=== PATIENT | male | born 1990 | race Caucasian/White ===

== ENCOUNTER 2017-07-03 16:17 | Inpatient (IN) | payer OTHER ==
[2017-07-03 16:40] VITALS: BMI 19.3
[2017-07-03] MEDS ORDERED: SODIUM CHLORIDE 1,000 ML IV STA ×2 (18:26→18:27)
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
[2017-07-03 18:49] LABS: HEMOGLOBIN 9.4 GM/dL (11.7-16.9); MCH 28.3 pg (25.7-33.7); MCHC 33.5 g/dl (32.0-35.9); MEAN CELL VOLUME 84.5 fl (80-96); MEAN PLT VOLUME 9.9 fl (7.5-11.1); PLATELET COUNT 129 K/MM3 (134-434); RBC 3.32 M/mm3 (4.00-5.60); RDW 14.5 % (11.9-15.9); URINE APPEARANCE CLEAR; URINE BILIRUBIN NEGATIVE (NEGATIVE); URINE BLOOD NEGATIVE (NEGATIVE); URINE COLOR LTYELLOW; URINE GLUCOSE (UA) NEGATIVE (NEGATIVE); URINE KETONE NEGATIVE (NEGATIVE); URINE LEUK ESTERASE NEGATIVE (NEGATIVE); URINE NITRITE NEGATIVE (NEGATIVE); URINE PROTEIN NEGATIVE (NEGATIVE); URINE UROBILINOGEN NEGATIVE mg/dL (0.2-1.0); WHITE BLOOD COUNT 4.9 K/mm3 (4.0-10.0)
[2017-07-03] MEDS ORDERED: DEXAMETHASONE SOD PHOSPHATE 10 MG/1 ML VIAL IVPUSH ONE (18:57)
[2017-07-03 19:06] LABS: INR 1.08 (0.82-1.09); PROTHROMBIN TIME (PATIENT) 12.2 SEC (9.98-11.88)
[2017-07-03 19:09] LABS: ACTIVATED PTT 41.9 SECONDS (26.9-34.4)
[2017-07-03 19:16] LABS: ALBUMIN 3.1 g/dl (3.4-5.0); ANION GAP 6 (8-16); BILIRUBIN,TOTAL 0.2 mg/dL (0.2-1.0); BLOOD UREA NITROGEN 17 mg/dL (7-18); CALCIUM 8.1 mg/dL (8.5-10.1); CHLORIDE 107 mmol/L (98-107); CO2 28 mmol/L (21-32); GLUCOSE,RANDOM 104 mg/dL (74-106); SGOT/AST 28 U/L (15-37); SGPT/ALT 21 U/L (12-78); SODIUM 141 mmol/L (136-145); TOT PROT 7.6 g/dl (6.4-8.2)
[2017-07-03 19:17] LABS: ALK PHOS 79 U/L (45-117)
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
[2017-07-03 19:45] LABS: PLATELET ESTIMATE SLT DECREASE
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
[2017-07-03 20:13] LABS: COCAINE, UR NEGATIVE ng/ml (CUTOFF=300); METHADONE, UR NEGATIVE ng/ml (CUTOFF=300); OPIATES, URI NEGATIVE ng/ml (CUTOFF=300); PHENCYCLIDINE,URINE NEGATIVE ng/ml (CUTOFF=25); URINE AMPHETAMINES NEGATIVE ng/ml (CUTOFF=500); URINE BARBITURATES NEGATIVE ng/ml (CUTOFF=200); URINE BENZODIAZEPINES NEGATIVE ng/ml (CUTOFF=200)
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
[2017-07-03] MEDS ORDERED: ACETAMINOPHEN 325 MG TABLET (FP) PO ONE (23:15)
[2017-07-03] MEDS ORDERED: ACETAMINOPHEN 325 MG TABLET (FP) ONE (23:45)
[2017-07-04 01:51] LABS: URINE APPEARANCE CLEAR; URINE BILIRUBIN NEGATIVE (NEGATIVE); URINE BLOOD NEGATIVE (NEGATIVE); URINE COLOR STRAW; URINE GLUCOSE (UA) NEGATIVE (NEGATIVE); URINE KETONE NEGATIVE (NEGATIVE); URINE LEUK ESTERASE NEGATIVE (NEGATIVE); URINE NITRITE NEGATIVE (NEGATIVE); URINE PROTEIN NEGATIVE (NEGATIVE); URINE UROBILINOGEN NEGATIVE mg/dL (0.2-1.0)
[2017-07-04] MEDS: HEPARIN NA (PORCINE) 5,000 UNITS/ML 1ML VIAL SQ SCH ×3 (06:11→23:03)
[2017-07-04 07:59] LABS: HEMATOCRIT 27.2 % (35.4-49); MCHC 33.2 g/dl (32.0-35.9); MEAN CELL VOLUME 84.3 fl (80-96); MEAN PLT VOLUME 10.2 fl (7.5-11.1); PLATELET COUNT 127 K/MM3 (134-434); RBC 3.22 M/mm3 (4.00-5.60); RDW 14.2 % (11.9-15.9); WHITE BLOOD COUNT 6.1 K/mm3 (4.0-10.0)
[2017-07-04 08:25] LABS: ALBUMIN 2.9 g/dl (3.4-5.0); ANION GAP 5 (8-16); BILIRUBIN,TOTAL 0.3 mg/dL (0.2-1.0); BLOOD UREA NITROGEN 11 mg/dL (7-18); CALCIUM 8.7 mg/dL (8.5-10.1); CHLORIDE 109 mmol/L (98-107); CO2 29 mmol/L (21-32); CREATININE 0.9 mg/dL (0.7-1.3); GLUCOSE,RANDOM 123 mg/dL (74-106); MAGNESIUM 1.9 mg/dL (1.8-2.4); PHOSPHOROUS 3.4 mg/dL (2.5-4.9); POTASSIUM 4.2 mmol/L (3.5-5.1); SGOT/AST 25 U/L (15-37); SGPT/ALT 24 U/L (12-78); SODIUM 143 mmol/L (136-145); TOT PROT 7.9 g/dl (6.4-8.2)
[2017-07-04 08:26] LABS: ALK PHOS 77 U/L (45-117)
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
[2017-07-04 11:01] LABS: ANISOCYTOSIS 0; MACROCYTOSIS 0; PLATELET ESTIMATE DECREASED
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
[2017-07-04] MEDS: ACETAMINOPHEN 325 MG TABLET (FP) PO PRN (19:50)
[2017-07-04] MEDS: NICOTINE 7 MG/24 HOURS TOPICAL PATCH TD SCH (20:43)
[2017-07-04] MEDS ORDERED: ALPRAZolam 0.25 MG TABLET PO ONE (20:45)
--- NOTE | 2017-07-04 23:18 | EKG ---
Test Reason : Blood Pressure : / mmHG Vent. Rate : 097 BPM Atrial Rate : 097 BPM P-R Int : 120 ms QRS Dur : 076 ms QT Int : 332 ms P-R-T Axes : 043 057 038 degrees QTc Int : 421 ms NORMAL SINUS RHYTHM NORMAL ECG NO PREVIOUS ECGS AVAILABLE Confirmed by CARLOS OLEA MD ([id number]) on 07/04/2017 11:18:08 PM Referred By: Confirmed By:CARLOS OLEA MD
[2017-07-05] MEDS: HEPARIN NA (PORCINE) 5,000 UNITS/ML 1ML VIAL SQ SCH ×2 (06:31→14:03)
[2017-07-05] MEDS: ACETAMINOPHEN 325 MG TABLET (FP) PO PRN (07:07)
[2017-07-05 07:43] LABS: INR 1.12 (0.82-1.09); PROTHROMBIN TIME (PATIENT) 12.6 SEC (9.98-11.88)
[2017-07-05 07:45] LABS: ACTIVATED PTT 40.3 SECONDS (26.9-34.4)
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
[2017-07-05] MEDS: NICOTINE 7 MG/24 HOURS TOPICAL PATCH TD SCH (10:53)
--- NOTE | 2017-07-05 12:24 | PN ---
Progress Note (short form) - Note Progress Note: c/o joint swellling no fevers awaiting records from [facility] Vital Signs Period Temp Pulse Resp BP Sys/Ulrich Pulse Ox Last 24 Hr 98.1 F-98.2 F 74-86 20-20 111-124/63-77 97 cor-rrr lungs clear abd soft,nt ext no edema CBC, BMP 07/04/17 06:00 07/04/17 06:00 Laboratory Tests 07/03/17 07/04/17 07/05/17 18:20 00:02 06:00 ESR 86 H Retic Count Monoscreen Negative HIV 1&2 Antibody Screen Negative HIV P24 Antigen Negative 07/05/17 06:00 ESR Retic Count 3.04 H Monoscreen HIV 1&2 Antibody Screen HIV P24 Antigen Microbiology 07/04/17 11:40 Blood - Peripheral Venous Blood Culture - Preliminary NO GROWTH OBTAINED AFTER 24 HOURS, INCUBATION TO CONTINUE FOR 4 DAYS. 07/04/17 11:15 Blood - Peripheral Venous Blood Culture - Preliminary NO GROWTH OBTAINED AFTER 24 HOURS, INCUBATION TO CONTINUE FOR 4 DAYS. a/p awaiting information from [facility] awaiting rheumatology evaluation he should be seen by opthomology- spoke with resident observe off antibiotics
--- NOTE | 2017-07-05 13:32 | CONSULT ---
Consult Consult Specialty:: Rheumatology. - History of Present Illness History of Present Illness: 26 year old male with no significant PMH admitted with arthritis, fever and lymphadenopathy HPI The patient reports he has has a 5 month history of frequen fever - on average twice per week, pain and swelling in hands and lymphadenopathy in neck. He noticed skin rash in arms when he has fever and occasionally has rash in pals. He has had oral ulcers and dry mouth and reports pink eyes in the past ( not at the present time) ad blurred vision in the right eye. He denies dry eyes , Raynaud's phenomenon, shortness of breath, chest pain or abdominal pain. The patient was living in [place] and 2 weeks ago he came to [place] and was admitted to the [facility] in [place]. Laboratory work-up from 06/27/17 revealed a CBC with a WBC of 6.0, Hgb 8.3, HCT 25.4 and platelets 113. Creatinine was 0.78 and liver function tests were normal. Urinalysis was normal. Uric acid was 4.2, TSH 0.76PT INR 11.6 and PTT 44.2. Parvovirus B19 IgG 74 and IgM negative and HTLV negative, HBsAb was reactive and HBsAg and HBc Ab were negative. Quantiferon was negative. EBV IgG positive, IgM negative, CMV IgG 6.0, IgM 68.3. NOEMY 1:5120, anti DNAds >1:640, anti-Sm >8, anti-[employer] UP OPERATOR >8 and anti-histone 8.4. Anti-CCP, myeloperoxidase, proteinase-3, anti-SSA and anti-SSB were negative. Complement was decreased (C3: 36.3 and C4: 3.2). At [facility] CBC with WBC of 6.1, Hgb 9, HCT 27.2 and platelets 127. ESR 86 , reticulocytes 3.04. PTT 40.3. RPR and rheumatoid factor negative. Urinalysis was negative. CT chest: Atelectasisin bases, lingula and LOGAN. No lymphadenopathy. CT abdomen: hepatosplenomegaly. Inguinal lymph nodes. - History Source History Provided By: Patient Limitations to Obtaining History: No Limitations - Alcohol/Substance Use Hx Alcohol Use: No - Smoking History Smoking history: Current every day smoker Have you smoked in the past 12 months: Yes Aproximately how many cigarettes per day: 8 Home Medications - Allergies Allergies/Adverse Reactions: Allergies Allergy/AdvReac Type Severity Reaction Status Date / Time diphenhydramine Allergy Verified 07/03/17 16:35 [From Benadryl] ibuprofen [From Motrin] Allergy Itching Verified 07/03/17 16:35 - Home Medications Home Medications: Ambulatory Orders No Home Medications 0 dose .ROUTE UTDICT 12/27/12 Review of Systems - Review of Systems Constitutional: reports: Malaise Eyes: reports: Other ([facility] in the past nad blurred vision in the right eye.) HENT: reports: Throat Pain Neck: reports: Swollen Glands Cardiovascular: reports: No Symptoms Respiratory: reports: No Symptoms Gastrointestinal: reports: No Symptoms Musculoskeletal: reports: Other (See HPI) Neurological: reports: No Symptoms Physical Exam Vital Signs: Vital Signs Temperature 98.2 F 07/05/17 05:57 Pulse Rate 74 07/05/17 05:57 Respiratory Rate 20 07/05/17 05:57 Blood Pressure 120/68 07/05/17 05:57 O2 Sat by Pulse Oximetry (%) 97 07/04/17 21:00 Constitutional: Yes: Mild Distress Eyes: Yes: WNL HENT: Yes: WNL Neck: Yes: Other (Bilateral tender lymphadenopathy) Cardiovascular: Yes: WNL Respiratory: Yes: WNL Gastrointestinal: Yes: WNL Musculoskeletal: Yes: Other (6 tender joints (shoulders, elbows, hips) and 20 swollen joints (wrists, MCPs and PIPs in both hands).) Labs: CBC, BMP 07/04/17 06:00 07/04/17 06:00 Laboratory Tests 07/03/17 07/04/17 07/04/17 18:20 00:02 00:02 ESR Retic Count PTT (Actin FS) Total Bilirubin AST ALT Alkaline Phosphatase LD Total 266 H Total Protein Urine Color Urine Appearance Urine pH Ur Specific [place] Urine Protein Urine Glucose (UA) Urine Ketones Urine Blood Urine Nitrite Urine Bilirubin Urine Urobilinogen Ur Leukocyte Esterase Rheumatoid Factor RPR Titer Monoscreen Negative HIV 1&2 Antibody Screen Negative 07/04/17 07/04/17 07/04/17 01:41 06:00 11:15 ESR Retic Count PTT (Actin FS) Total Bilirubin 0.3 D AST 25 ALT 24 Alkaline Phosphatase 77 LD Total Total Protein 7.9 Urine Color Straw Urine Appearance Clear Urine pH 8.0 D Ur Specific [place] 1.009 Urine Protein Negative Urine Glucose (UA) Negative Urine Ketones Negative Urine Blood Negative Urine Nitrite Negative Urine Bilirubin Negative Urine Urobilinogen Negative Ur Leukocyte Esterase Negative Rheumatoid Factor < 10.0 RPR Titer Monoscreen HIV 1&2 Antibody Screen 07/05/17 07/05/17 07/05/17 06:00 06:00 06:00 ESR 86 H Retic Count PTT (Actin FS) 40.3 H Total Bilirubin AST ALT Alkaline Phosphatase LD Total Total Protein Urine Color Urine Appearance Urine pH Ur Specific [place] Urine Protein Urine Glucose (UA) Urine Ketones Urine Blood Urine Nitrite Urine Bilirubin Urine Urobilinogen Ur Leukocyte Esterase Rheumatoid Factor RPR Titer Nonreactive Monoscreen HIV 1&2 Antibody Screen 07/05/17 06:00 ESR Retic Count 3.04 H PTT (Actin FS) Total Bilirubin AST ALT Alkaline Phosphatase LD Total Total Protein Urine Color Urine Appearance Urine pH Ur Specific [place] Urine Protein Urine Glucose (UA) Urine Ketones Urine Blood Urine Nitrite Urine Bilirubin Urine Urobilinogen Ur Leukocyte Esterase Rheumatoid Factor RPR Titer Monoscreen HIV 1&2 Antibody Screen Problem List - Problems (1) Lupus (systemic lupus erythematosus) Assessment/Plan: Systemic lupus erythematosus. The patient has fever, lymphadenopathy and inflammatory arthritis. No kidney involvement. Serology positive (NOEMY, anti- DNAds, anti-Sm, anti-GE[employer] UP OPERATOR and anti-histone antibodies) and low complement. Plan: Start Prednisone 20 mg/d, Methotrexate 15 mg/week and Folic acid 1 mg BID. Once fever resolves he should continue management as outpatient Code(s): M32.9 - SYSTEMIC LUPUS ERYTHEMATOSUS, UNSPECIFIED
[2017-07-05] MEDS ORDERED: FOLIC ACID 1 MG TABLET (FP) PO SCH (14:15)
[2017-07-05] MEDS ORDERED: predniSONE 20 MG TABLET (UD) PO SCH (14:15)
[2017-07-05 15:10] VITALS: BP 140/85; PULSE 101; TEMP 97.9
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
[2017-07-05] MEDS ORDERED: METHOTREXATE 2.5 MG TABLET PO SCH (15:45)
[2017-07-05] MEDS ORDERED: NAPROXEN 500 MG TABLET (FP) PO SCH (22:00)
[2017-07-06 06:09] LABS: SERUM IRON SATURATION 23 (15-55); TOTAL IRON BINDING CAPACITY 271 (250-450); UIBC 209 ug/dL (111-343)
[2017-07-07 00:11] LABS: SPECKLED PATTERN >1:1280 (.)
== END 2017-07-05 18:40 | disposition home or self-care (01) | DRG 346 ==
LOC: JER 16:17 → JERBED 19:55 → UNDOADMIN 20:32 → J7W 07-04 10:10
PROVIDERS: ADMIT Internal Medicine; ATTEND Internal Medicine
DX: M32.9 Systemic lupus erythematosus, unspecified (principal); R59.0 Localized enlarged lymph nodes; J45.909 Unspecified asthma, uncomplicated; R63.4 Abnormal weight loss; Z68.22 Body mass index [BMI] 22.0-22.9, adult; R62.7 Adult failure to thrive; E46 Unspecified protein-calorie malnutrition; F17.200 Nicotine dependence, unspecified, uncomplicated; M08.00 Unspecified juvenile rheumatoid arthritis of unspecified site; D64.9 Anemia, unspecified; R50.9 Fever, unspecified; D69.6 Thrombocytopenia, unspecified; J98.11 Atelectasis; Z87.828 Personal history of other (healed) physical injury and trauma
CPT/HCPCS: 36415; 71046-TC-FY; 71101-TC-FY; 71250-TC; 74177-TC; 80053; 80307; 81003; 82728; 82784; 83540; 83550; 83605; 83615; 83735; 84100; 84134; 84155; 84165; 84443; 85025; 85044; 85610; 85651; 85730; 86038; 86308; 86334; 86431; 86480; 86593; 86850; 86900; 86901; 87040; 87389; 87491; 87591; 93005; 93010; 99285-25; J1100; J1644; J8610

== ENCOUNTER 2017-07-31 18:46 | Inpatient (IN) | payer OTHER ==
[2017-07-31 18:53] VITALS: TEMP 98.2; BMI 22.8
[2017-07-31] MEDS ORDERED: SODIUM CHLORIDE 0.9% 1000 ML INFUS.BAG IV STA (19:47)
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
[2017-07-31] MEDS ORDERED: CEFTRIAXONE 1 GM in DEXTROSE 5%-WATER - 50 ML IVPB ONE (20:09)
[2017-07-31] MEDS ORDERED: VANCOMYCIN 1 GRAM (PRE-DOCKED) 1,000 MG/250 ML BAG IVPB ONE (20:10)
[2017-07-31 20:24] LABS: BASO % 0.5 % (0-2.0); EOS % 0.3 % (0-4.5); HEMATOCRIT 34.7 % (35.4-49); HEMOGLOBIN 11.7 GM/dL (11.7-16.9); LYMPH % 10.4 % (8-40); MCH 29.9 pg (25.7-33.7); MCHC 33.8 g/dl (32.0-35.9); MEAN CELL VOLUME 88.4 fl (80-96); MEAN PLT VOLUME 9.4 fl (7.5-11.1); MONO % 5.4 % (3.8-10.2); NEUT % 83.4 % (42.8-82.8); PLATELET COUNT 188 K/MM3 (134-434); RBC 3.92 M/mm3 (4.00-5.60); RDW 18.9 % (11.9-15.9)
[2017-07-31 20:43] LABS: INR 1.18 (0.82-1.09); PROTHROMBIN TIME (PATIENT) 13.3 SEC (9.98-11.88)
[2017-07-31 20:46] LABS: ACTIVATED PTT 38.9 SECONDS (26.9-34.4)
[2017-07-31 20:57] LABS: ALBUMIN 3.9 g/dl (3.4-5.0); ANION GAP 10 (8-16); BILIRUBIN,TOTAL 0.3 mg/dL (0.2-1.0); BLOOD UREA NITROGEN 31 mg/dL (7-18); CALCIUM 9.3 mg/dL (8.5-10.1); CHLORIDE 103 mmol/L (98-107); CO2 30 mmol/L (21-32); CREATININE 1.1 mg/dL (0.7-1.3); GLUCOSE,RANDOM 104 mg/dL (74-106); POTASSIUM 4.6 mmol/L (3.5-5.1); SGOT/AST 15 U/L (15-37); SGPT/ALT 12 U/L (12-78); SODIUM 143 mmol/L (136-145); TOT PROT 8.1 g/dl (6.4-8.2)
[2017-07-31 21:00] LABS: ALK PHOS 71 U/L (45-117)
[2017-07-31] MEDS ORDERED: morphine CARPU-JECT 2 MG/1 ML DISP.SYRIN IVPUSH ONE (21:00)
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
[2017-08-01] MEDS ORDERED: SODIUM CHLORIDE 1,000 ML IV SCH (00:15)
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
[2017-08-01] MEDS ORDERED: PIPERACILLIN/TAZOB 3.375 GM/50 ML PRE-DOCKED IVPB SCH (00:30)
[2017-08-01] MEDS ORDERED: PIPERACILLIN/TAZOB 3.375 GM/50 ML PRE-DOCKED IVPB ONE ×2 (00:30→06:00)
[2017-08-01] MEDS ORDERED: ACETAMINOPHEN 1000 MG/100 ML VIAL (NON FORMULARY) IVPB ONE (03:07)
[2017-08-01 03:47] VITALS: BP 133/78; PULSE 91
[2017-08-01 06:09] LABS: BASO % 0.2 % (0-2.0); EOS % 1.5 % (0-4.5); HEMATOCRIT 33.2 % (35.4-49); HEMOGLOBIN 11.1 GM/dL (11.7-16.9); LYMPH % 17.9 % (8-40); MCHC 33.5 g/dl (32.0-35.9); MEAN CELL VOLUME 89.5 fl (80-96); MEAN PLT VOLUME 9.4 fl (7.5-11.1); MONO % 4.6 % (3.8-10.2); NEUT % 75.8 % (42.8-82.8); PLATELET COUNT 166 K/MM3 (134-434); RBC 3.71 M/mm3 (4.00-5.60); RDW 19.3 % (11.9-15.9); WHITE BLOOD COUNT 8.1 K/mm3 (4.0-10.0)
[2017-08-01 06:30] LABS: ANION GAP 8 (8-16); BLOOD UREA NITROGEN 26 mg/dL (7-18); CALCIUM 8.4 mg/dL (8.5-10.1); CHLORIDE 107 mmol/L (98-107); CO2 28 mmol/L (21-32); GLUCOSE,RANDOM 84 mg/dL (74-106); MAGNESIUM 1.9 mg/dL (1.8-2.4); PHOSPHOROUS 2.1 mg/dL (2.5-4.9); POTASSIUM 4.1 mmol/L (3.5-5.1); SODIUM 143 mmol/L (136-145)
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
[2017-08-01] MEDS ORDERED: predniSONE 20 MG TABLET (UD) PO SCH (10:00)
[2017-08-01] MEDS ORDERED: FOLIC ACID 1 MG TABLET (FP) PO SCH (10:00)
[2017-08-01] MEDS ORDERED: VANCOMYCIN 1 GRAM (PRE-DOCKED) 1,000 MG/250 ML BAG IVPB SCH (10:00)
[2017-08-02] MEDS ORDERED: METHOTREXATE 2.5 MG TABLET PO SCH (10:00)
== END 2017-08-01 06:45 | disposition left against medical advice (07) | DRG 383 ==
LOC: JERFT 18:46 → JERBED 08-01 00:32
PROVIDERS: ADMIT Internal Medicine; ATTEND Internal Medicine
DX: L03.116 Cellulitis of left lower limb (principal); M32.9 Systemic lupus erythematosus, unspecified; F17.210 Nicotine dependence, cigarettes, uncomplicated; R00.0 Tachycardia, unspecified; J45.909 Unspecified asthma, uncomplicated; F41.9 Anxiety disorder, unspecified
CPT/HCPCS: 36415; 71045-TC-FY; 73523-TC-FY; 73552-TC-LT-FY; 73562-TC-LT-FY; 73590-TC-LT-FY; 80048; 80053; 82550; 82553; 83605; 83735; 84100; 84484; 85025; 85610; 85651; 85730; 86140; 86850; 86900; 86901; 87040; 99282-25; J0131; J7030

== ENCOUNTER 2017-08-01 07:20 | Inpatient (IN) | payer OTHER ==
[2017-08-01 08:03] VITALS: BMI 22.8
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
[2017-08-01] MEDS ORDERED: SODIUM CHLORIDE 0.9% 1000 ML INFUS.BAG IV ONE (08:25)
[2017-08-01] MEDS ORDERED: ACETAMINOPHEN 1000 MG/100 ML VIAL (NON FORMULARY) IVPB ONE (08:26)
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
[2017-08-01] MEDS ORDERED: METHOTREXATE 2.5 MG TABLET PO SCH (09:45)
[2017-08-01] MEDS ORDERED: ACETAMINOPHEN 325 MG TABLET (FP) PO PRN (09:52)
[2017-08-01] MEDS ORDERED: predniSONE 20 MG TABLET (UD) ONE (10:13)
[2017-08-01] MEDS ORDERED: FOLIC ACID 1 MG TABLET (FP) ONE (10:13)
[2017-08-01] MEDS: FOLIC ACID 1 MG TABLET (FP) PO SCH (10:15)
[2017-08-01] MEDS: predniSONE 20 MG TABLET (UD) PO SCH (10:15)
[2017-08-01] MEDS ORDERED: CEFEPIME HCL/D5W 2 GM/50 ML BAG IVPB ONE (11:00)
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
[2017-08-01] MEDS ORDERED: VANCOMYCIN 1,000 MG in DEXTROSE 5%-WATER - 250 ML IVPB ONE (12:00)
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
[2017-08-01] MEDS ORDERED: PT OWN MED DRAWER 7, Y5N ONE (14:47)
[2017-08-01] MEDS: PANTOPRAZOLE 40 MG TABLET (FP) PO SCH (14:58)
[2017-08-01] MEDS: ACETAMINOPHEN 325 MG TABLET (FP) PO PRN (14:58)
[2017-08-01] MEDS: VANCOMYCIN 1,000 MG in DEXTROSE 5%-WATER - 250 ML IVPB SCH (14:59)
[2017-08-01] MEDS: KETOROLAC TROMETHAMINE 15 MG/ML VIAL IVPUSH PRN ×2 (14:59→23:09)
[2017-08-01] MEDS: PIPERACILLIN/TAZOB 3.375 GM 3.375 GM in DEXTROSE 5%-WATER - 50 ML IVPB SCH ×2 (17:05→17:51)
--- NOTE | 2017-08-01 18:43 | CON.ORTH ---
Consult Consult Specialty:: orthopedics - History of Present Illness History of Present Illness: 26y M here for R knee pain/swelling -admitted for dx of cellulitis -treated with abx to this point -pt states not feeling any better since starting abx -no f/c/n/v/ns - History Source History Provided By: Patient, Medical Record Limitations to Obtaining History: No Limitations - Past Medical History Rheumatology: Yes: Lupus - Alcohol/Substance Use Hx Alcohol Use: No - Smoking History Smoking history: Current every day smoker Have you smoked in the past 12 months: Yes Aproximately how many cigarettes per day: 8 Home Medications - Allergies Allergies/Adverse Reactions: Allergies Allergy/AdvReac Type Severity Reaction Status Date / Time diphenhydramine Allergy Verified 08/01/17 07:25 [From Benadryl] ibuprofen [From Motrin] Allergy Itching Verified 08/01/17 07:25 - Home Medications Home Medications: Ambulatory Orders Folic Acid - 1 mg PO DAILY 07/31/17 Methotrexate [Mexate -] 15 mg PO TU 07/31/17 Naproxen 500 mg PO BID 07/31/17 Prednisone [Deltasone] 20 mg PO DAILY 07/31/17 Physical Exam for Ortho Vital Signs: Vital Signs Temperature 99.4 F 08/01/17 14:26 Pulse Rate 99 H 08/01/17 14:26 Respiratory Rate 18 08/01/17 14:26 Blood Pressure 128/60 08/01/17 14:26 O2 Sat by Pulse Oximetry (%) 98 08/01/17 12:17 Constitutional: Yes: Well Nourished, No Distress, Calm Extremities: Yes: Other (RLE shows cellulitis anteriorly over the knee - pt is comfortably ambulating without assist - there is a small quarter sized area of fluctuance under a small scab - there is warmth about the anterior aspect of the knee - no effusion - NVID) Labs: ESR 53 CRP 4 Imaging - Results X-ray: Report Reviewed (Soft tissue swelling. No bony or joint pathology.), Image Reviewed Problem List - Problems (1) Septic prepatellar bursitis of left knee Assessment/Plan: I reviewed today's findings with Sae -advised that there does appear to be some fluctuance to the left knee -recommended aspiration to assess if there was fluid collection -after review of the risks, benefits and alternatives, the patient elected to proceed procedure: informed consent obtained risk of aspiration - persistent infection or spread benefit - obtain bacteria to analyze and target antibiotics alternative - observation on abx may not improve patient voiced understanding, offered translation services if he did not understand but patient declined patient elected to proceed The left knee was triple prepped with betadine. Under sterile technique a 18g needle was inserted into the pocket just adjacent to the scab. 2cc of purulent fluid obtained, as the wound was milked for more fluid, the scab was dislodged and more pus erupted from the wound. Pt given 4mg IV morphine for pain control. The knee was then milked for more pus. Approximately 20cc of pus removed. No more induration or fluctuant pockets noted. A compressive dressing was placed. -continue IV abx -cultures sent along with gram stain -will follow -anticipate improvement now that pus is decompressed -consider formal I+D if not improving on ABX Code(s): M71.162 - OTHER INFECTIVE BURSITIS, LEFT KNEE
[2017-08-01] MEDS ORDERED: morphine SULFATE 4 MG/ML VIAL ONE (18:54)
[2017-08-01] MEDS ORDERED: morphine SULFATE 4 MG/ML VIAL IVPUSH ONE (19:07)
[2017-08-02] MEDS: VANCOMYCIN 1,000 MG in DEXTROSE 5%-WATER - 250 ML IVPB SCH ×2 (01:07→11:03)
[2017-08-02] MEDS: PIPERACILLIN/TAZOB 3.375 GM 3.375 GM in DEXTROSE 5%-WATER - 50 ML IVPB SCH ×3 (02:45→18:05)
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
[2017-08-02 08:14] LABS: BASO % 0.2 % (0-2.0); EOS % 1.1 % (0-4.5); HEMATOCRIT 30.6 % (35.4-49); HEMOGLOBIN 10.2 GM/dL (11.7-16.9); LYMPH % 18.6 % (8-40); MCH 29.8 pg (25.7-33.7); MCHC 33.5 g/dl (32.0-35.9); MEAN PLT VOLUME 9.1 fl (7.5-11.1); MONO % 3.9 % (3.8-10.2); NEUT % 76.2 % (42.8-82.8); PLATELET COUNT 162 K/MM3 (134-434); RBC 3.44 M/mm3 (4.00-5.60); RDW 18.8 % (11.9-15.9); WHITE BLOOD COUNT 9.1 K/mm3 (4.0-10.0)
[2017-08-02 08:27] LABS: ANION GAP 5 (8-16); BLOOD UREA NITROGEN 20 mg/dL (7-18); CALCIUM 7.9 mg/dL (8.5-10.1); CHLORIDE 105 mmol/L (98-107); CO2 28 mmol/L (21-32); CREATININE 1.2 mg/dL (0.7-1.3); GLUCOSE,RANDOM 90 mg/dL (74-106); POTASSIUM 3.5 mmol/L (3.5-5.1); SODIUM 138 mmol/L (136-145)
[2017-08-02] MEDS: ENOXAPARIN NA (PORCINE) 40 MG/0.4 ML DISP.SYRIN SQ SCH (10:58)
[2017-08-02] MEDS: PANTOPRAZOLE 40 MG TABLET (FP) PO SCH (10:58)
[2017-08-02] MEDS: predniSONE 20 MG TABLET (UD) PO SCH (10:58)
[2017-08-02] MEDS: FOLIC ACID 1 MG TABLET (FP) PO SCH (10:58)
[2017-08-02] MEDS: ACETAMINOPHEN 325 MG TABLET (FP) PO PRN (10:59)
[2017-08-02] MEDS: KETOROLAC TROMETHAMINE 15 MG/ML VIAL IVPUSH PRN ×2 (10:59→23:59)
--- NOTE | 2017-08-02 15:19 | PN ---
Progress Note, Physician History of Present Illness: S/P aspiration of infected L prepatellar bursa Less pain Low grade temps Tmax 100.2 - Current Medication List Current Medications: Active Medications Acetaminophen (Tylenol -) 650 mg PO Q4H PRN PRN Reason: PAIN Last Admin: 08/02/17 10:59 Dose: 650 mg Enoxaparin Sodium (Lovenox -) 40 mg SQ DAILY [facility] Last Admin: 08/02/17 10:58 Dose: 40 mg Folic Acid (Folic Acid -) 1 mg PO DAILY [facility] Last Admin: 08/02/17 10:58 Dose: 1 mg Vancomycin HCl 1,000 mg/ (Dextrose) 250 mls @ 166.667 mls/hr IVPB Q12H JOSE Last Admin: 08/02/17 11:03 Dose: 166.667 mls/hr Piperacillin Sod/Tazobactam (Sod 3.375 gm/ Dextrose) 50 mls @ 100 mls/hr IVPB Q8H-IV JOSE PRN Reason: Protocol Last Admin: 08/02/17 11:02 Dose: 100 mls/hr Ketorolac Tromethamine (Toradol Injection -) 15 mg IVPUSH Q6H PRN PRN Reason: PAIN LEVEL 6-10 Stop: 08/06/17 13:42 Last Admin: 08/02/17 10:59 Dose: 15 mg Pantoprazole Sodium (Protonix -) 40 mg PO DAILY [facility] Last Admin: 08/02/17 10:58 Dose: 40 mg Prednisone (Deltasone -) 20 mg PO DAILY [facility] Last Admin: 08/02/17 10:58 Dose: 20 mg - Objective Vital Signs: Vital Signs Temperature 98.5 F 08/02/17 15:07 Pulse Rate 98 H 08/02/17 15:07 Respiratory Rate 18 08/02/17 15:07 Blood Pressure 122/65 08/02/17 15:07 O2 Sat by Pulse Oximetry (%) 98 08/01/17 21:00 Constitutional: Yes: No Distress Eyes: Yes: Conjunctiva Clear Cardiovascular: Yes: Regular Rate and Rhythm, S1, S2 Respiratory: Yes: CTA Bilaterally Gastrointestinal: Yes: Normal Bowel Sounds, Soft. No: Tenderness Extremities: Yes: Other (decreased erythema/ swelling L patella + expressible pus from incision) Labs: CBC, BMP 08/02/17 07:12 08/02/17 07:12 Assessment/Plan Infected L prepatellar bursa s/p aspiration Low grade temp SLE + L femur intramedullary joe Await c/s Vancomycin/ zosyn
--- NOTE | 2017-08-02 15:37 | PN ---
Teaching Attending Note Name of Resident: Adeel Frazier ATTENDING PHYSICIAN STATEMENT I saw and evaluated the patient. I reviewed the resident's note and discussed the case with the resident. I agree with the resident's findings and plan as documented. SUBJECTIVE:c/o L knee pain which improved after drainage yesterday. difficulty ambulating. denies CP, SOB, fever, chills, N/V/C/D OBJECTIVE: Last Vital Signs Temp Pulse Resp BP Pulse Ox 98.5 F 98 H 18 122/65 98 08/02/17 15:07 08/02/17 15:07 08/02/17 15:07 08/02/17 15:07 08/01/17 21:00 General NAD CV S1 S2 RRR no murmur/rub/gallop Lungs CTA B/L no wheezing/rales/rhonchi Extremities L knee swollen, erthematous, tender. +purulent drainage on palpation of the knee ASSESSMENT AND PLAN: 26yo M with PMH recently diagnosed SLE presenting to the ER wtih L knee pain 1. L knee prepatellar bursitis- s/p drainage bedside 08/01. continues to have active pus drainage. watched more drainage milked by ortho. should be done twice a day. f/u Cx sent. on vanco/zosyn day 2. check ESR/CRP. ortho and ID on board. pain control. PT eval. may need cane to walk a this time 2. SLE- will hold MTX during this time. cont prednisone 20mg. rheum consulted 3. Anemia of chronic disease- iron stuides on recent lab work noted. hgb above baseline. will monitor for now. no indication for txn 4. DVT ppx lovenox
[2017-08-02] MEDS ORDERED: METHOTREXATE 2.5 MG TABLET PO SCH (15:45)
[2017-08-02] MEDS ORDERED: morphine SULFATE 4 MG/ML VIAL IVPUSH ONE (16:30)
[2017-08-02] MEDS ORDERED: PT OWN MED DRAWER 7, Y5N ONE (17:41)
--- NOTE | 2017-08-02 21:27 | PN ---
Progress Note (short form) - Note Progress Note: Pt seen. Notes some improvement in comfort. AF VSS LLE Knee w continued cellulitis but slightly improved Wound shows continued purulent drainaged About 5cc additional pus expressed Comfortable ROM NVID A/p L prepatellar septic bursitis -continue iv abx -continue to express any debris from wound -can consider operative debridement if not responding to abx in the next few days Problem List - Problems (1) Septic prepatellar bursitis of left knee Code(s): M71.162 - OTHER INFECTIVE BURSITIS, LEFT KNEE
[2017-08-03] MEDS: VANCOMYCIN 1,000 MG in DEXTROSE 5%-WATER - 250 ML IVPB SCH (00:46)
[2017-08-03] MEDS: PIPERACILLIN/TAZOB 3.375 GM 3.375 GM in DEXTROSE 5%-WATER - 50 ML IVPB SCH (01:45)
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
[2017-08-03 08:07] LABS: BASO % 0.3 % (0-2.0); EOS % 1.4 % (0-4.5); HEMATOCRIT 30.9 % (35.4-49); HEMOGLOBIN 10.4 GM/dL (11.7-16.9); LYMPH % 17.4 % (8-40); MCH 29.8 pg (25.7-33.7); MCHC 33.5 g/dl (32.0-35.9); MEAN CELL VOLUME 89.1 fl (80-96); NEUT % 75.9 % (42.8-82.8); PLATELET COUNT 200 K/MM3 (134-434); RBC 3.47 M/mm3 (4.00-5.60); RDW 18.6 % (11.9-15.9); WHITE BLOOD COUNT 6.8 K/mm3 (4.0-10.0)
[2017-08-03 08:17] LABS: CHLORIDE 104 mmol/L (98-107); POTASSIUM 3.7 mmol/L (3.5-5.1); SODIUM 141 mmol/L (136-145)
[2017-08-03 08:42] LABS: ALBUMIN 3.1 g/dl (3.4-5.0); ALK PHOS 53 U/L (45-117); ANION GAP 11 (8-16); BILIRUBIN,TOTAL 0.4 mg/dL (0.2-1.0); BLOOD UREA NITROGEN 23 mg/dL (7-18); CALCIUM 8.9 mg/dL (8.5-10.1); CO2 26 mmol/L (21-32); CREATININE 1.6 mg/dL (0.7-1.3); GLUCOSE,RANDOM 78 mg/dL (74-106); SGOT/AST 11 U/L (15-37); SGPT/ALT 7 U/L (12-78); TOT PROT 7.1 g/dl (6.4-8.2)
--- NOTE | 2017-08-03 08:52 | PN ---
Progress Note (short form) - Note Progress Note: ID Vancomycin and Zosyn Afebrile Left knee some swelling minimal redness no tenderness full ROM at knee joint Microbiology 08/01/17 19:00 Knee - Left Gram Stain - Final 08/01/17 19:00 Knee - Left Wound Culture - Preliminary Presumptive Mssa (Pbp2a Neg) 08/01/17 15:40 Blood - Peripheral Venous Blood Culture - Preliminary NO GROWTH OBTAINED AFTER 24 HOURS, INCUBATION TO CONTINUE FOR 4 DAYS. 08/01/17 13:35 Blood - Peripheral Venous Blood Culture - Preliminary NO GROWTH OBTAINED AFTER 24 HOURS, INCUBATION TO CONTINUE FOR 4 DAYS. Laboratory Tests 08/02/17 08/02/17 08/03/17 07:12 07:12 07:20 WBC 6.8 Hgb 10.4 L Hct 30.9 L Plt Count 200 D ESR 59 H BUN 20 H D Creatinine 1.2 Assessment MSSA bursitis improving Plan Substitute Keflex 500mg qid for 7 days Segun SLADE
[2017-08-03] MEDS ORDERED: CEPHALEXIN MONOHYDRATE 500 MG CAPSULE (UD) PO SCH ×2 (10:00→12:00)
[2017-08-03] MEDS: oxyCODONE HCL 5 MG TABLET PO PRN ×3 (10:30→23:49)
[2017-08-03] MEDS: ENOXAPARIN NA (PORCINE) 40 MG/0.4 ML DISP.SYRIN SQ SCH (10:31)
[2017-08-03] MEDS: FOLIC ACID 1 MG TABLET (FP) PO SCH (10:31)
[2017-08-03] MEDS: predniSONE 20 MG TABLET (UD) PO SCH (10:31)
[2017-08-03] MEDS: PANTOPRAZOLE 40 MG TABLET (FP) PO SCH (10:31)
[2017-08-03] MEDS ORDERED: SODIUM CHLORIDE 0.9% 500 ML INFUS.BAG IV ONE (11:20)
--- NOTE | 2017-08-03 13:12 | PN ---
Teaching Attending Note Name of Resident: Adeel Frazier ATTENDING PHYSICIAN STATEMENT I saw and evaluated the patient. I reviewed the resident's note and discussed the case with the resident. I agree with the resident's findings and plan as documented. SUBJECTIVE:pain significantly improved. requesting to go home. denies CP, SOB, fever, chills, N/V/C?D OBJECTIVE: Last Vital Signs Temp Pulse Resp BP Pulse Ox 98.7 F 88 18 121/67 99 08/03/17 06:00 08/03/17 06:00 08/03/17 06:00 08/03/17 06:00 08/02/17 21:00 General NAD Extremities L knee swollen, erthematous, tender. no active drainage noted of the knee ASSESSMENT AND PLAN: 26yo M with PMH recently diagnosed SLE presenting to the ER wtih L knee pain 1. L knee prepatellar bursitis- s/p drainage bedside 08/01. more active drainage this AM with ortho. WCx +MSSA. abx switched to keflex po. will need to continue soaks to allow drainage. pain control 2. SANDRA- likely medication induced (vanco and toradol) as well as decreased po intake. will bolus 1 L NS and repeat 3. SLE- will hold MTX during this time. cont prednisone 20mg. rheum consulted 4. Anemia of chronic disease- iron stuides on recent lab work noted. hgb above baseline. will monitor for now. no indication for txn 5. DVT ppx lovenox 6. pt expressed his desire to go home. explained in detail risks assoc with leaving due to infetion and kidney function. although i do anticipate kidney function to improve would want to see it stabilizing prior to leaving. informed him if renal function is not improving will need to stay until this occurs. explained risk and benefits of leaving AMA. agreed to wait till repeat labs.
[2017-08-03 14:23] LABS: HEMATOCRIT 29.7 % (35.4-49); HEMOGLOBIN 9.9 GM/dL (11.7-16.9); MCH 29.5 pg (25.7-33.7); MCHC 33.3 g/dl (32.0-35.9); MEAN CELL VOLUME 88.6 fl (80-96); MEAN PLT VOLUME 8.7 fl (7.5-11.1); PLATELET COUNT 187 K/MM3 (134-434); RBC 3.35 M/mm3 (4.00-5.60); RDW 18.3 % (11.9-15.9); WHITE BLOOD COUNT 6.7 K/mm3 (4.0-10.0)
--- NOTE | 2017-08-03 14:32 | EKG ---
Test Reason : Blood Pressure : / mmHG Vent. Rate : 100 BPM Atrial Rate : 100 BPM P-R Int : 130 ms QRS Dur : 088 ms QT Int : 312 ms P-R-T Axes : 062 072 006 degrees QTc Int : 402 ms NORMAL SINUS RHYTHM NONSPECIFIC T WAVE ABNORMALITY ABNORMAL ECG WHEN COMPARED WITH ECG OF 03-JUL-2017 18:41, NONSPECIFIC T WAVE ABNORMALITY, WORSE IN INFERIOR LEADS Confirmed by RED SLADE, CHARLES ([id number]) on 08/03/2017 2:31:38 PM Referred By: Caryl BELLO Confirmed By:CHARLES MOON MD
[2017-08-03 15:14] LABS: ANION GAP 10 (8-16); BLOOD UREA NITROGEN 24 mg/dL (7-18); CALCIUM 8.2 mg/dL (8.5-10.1); CHLORIDE 106 mmol/L (98-107); CO2 27 mmol/L (21-32); CREATININE 1.6 mg/dL (0.7-1.3); GLUCOSE,RANDOM 118 mg/dL (74-106); POTASSIUM 3.3 mmol/L (3.5-5.1); SODIUM 143 mmol/L (136-145)
[2017-08-03] MEDS ORDERED: POTASSIUM CHLORIDE ORAL LIQUID 20 MEQ/15 ML PO ONE ×2 (17:00→21:15)
--- NOTE | 2017-08-03 18:23 | PN ---
Progress Note (short form) - Note Progress Note: Pt seen. Less pain today. AF VSS LLE Knee w continued cellulitis but again improved Minimal active drainage from wound. 3-4cc of pus able to be expressed. Comfortable ROM NVID A/p L prepatellar septic bursitis -advised patient he is improving but given he still has persistent purulent collection he should remain as inpt 1 more day -patient is declining -can follow up Tuesday as outpatient -continue abx -advised to go to ER if condition at all worsens Problem List - Problems (1) Septic prepatellar bursitis of left knee Code(s): M71.162 - OTHER INFECTIVE BURSITIS, LEFT KNEE
--- NOTE | 2017-08-03 18:38 | HOSP ---
Subjective - Review of Symptoms Subjective: notified by RN that pt was c/o CP Pt assessed states it started in the AM but did not mention it because he wanted to go home On physical exam pt resting comfortable in NAD, VSS CV S1 S2 + with rub appreciated A&P High concern for Acute pericarditis. ESR/CRP noted to also be trending up which can be due to pericarditis as his knee infection appears to be healing well. Stat EKG does not show any R depression/ST elevation. Cardiac enzyme ordered, Stat Echo ordered IN light of SANDRA would not give NSAIDs or colchcine. will incresae prednison to 40mg and monitor if symptoms improve. f/u labs and echo report Physical Examination Vital Signs: Vital Signs Temperature 99.2 F 08/03/17 15:14 Pulse Rate 98 H 08/03/17 15:14 Respiratory Rate 18 08/03/17 15:14 Blood Pressure 141/77 08/03/17 15:14 O2 Sat by Pulse Oximetry (%) 99 08/03/17 10:15 Labs: CBC, BMP 08/03/17 13:30 08/03/17 13:30
[2017-08-03] MEDS ORDERED: predniSONE 20 MG TABLET (UD) PO ONE (19:00)
[2017-08-03 21:57] LABS: ANION GAP 8 (8-16); BLOOD UREA NITROGEN 22 mg/dL (7-18); CALCIUM 8.7 mg/dL (8.5-10.1); CHLORIDE 104 mmol/L (98-107); CO2 28 mmol/L (21-32); CREATININE 1.7 mg/dL (0.7-1.3); GLUCOSE,RANDOM 121 mg/dL (74-106); POTASSIUM 4.5 mmol/L (3.5-5.1); SODIUM 140 mmol/L (136-145)
[2017-08-03] MEDS: CEFAZOLIN 1 GM/D5W 1 GM/50 ML BAG IVPB SCH (22:00)
[2017-08-03] MEDS ORDERED: SODIUM CHLORIDE 1,000 ML IV SCH (23:15)
[2017-08-04] MEDS: CEFAZOLIN 1 GM/D5W 1 GM/50 ML BAG IVPB SCH ×2 (03:12→10:01)
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
[2017-08-04] MEDS ORDERED: predniSONE 20 MG TABLET (UD) PO SCH (06:29)
[2017-08-04 08:14] LABS: BASO % 0.2 % (0-2.0); EOS % 0.1 % (0-4.5); HEMATOCRIT 31.1 % (35.4-49); HEMOGLOBIN 10.4 GM/dL (11.7-16.9); LYMPH % 9.5 % (8-40); MCH 29.7 pg (25.7-33.7); MCHC 33.6 g/dl (32.0-35.9); MEAN CELL VOLUME 88.7 fl (80-96); MEAN PLT VOLUME 8.6 fl (7.5-11.1); MONO % 2.9 % (3.8-10.2); NEUT % 87.3 % (42.8-82.8); PLATELET COUNT 218 K/MM3 (134-434); RBC 3.51 M/mm3 (4.00-5.60); RDW 18.4 % (11.9-15.9); WHITE BLOOD COUNT 6.7 K/mm3 (4.0-10.0)
[2017-08-04 08:45] LABS: CHLORIDE 105 mmol/L (98-107); POTASSIUM 4.1 mmol/L (3.5-5.1); SODIUM 140 mmol/L (136-145)
[2017-08-04 08:59] LABS: ALBUMIN 3.1 g/dl (3.4-5.0); ALK PHOS 50 U/L (45-117); ANION GAP 11 (8-16); BILIRUBIN,TOTAL 0.3 mg/dL (0.2-1.0); BLOOD UREA NITROGEN 21 mg/dL (7-18); CALCIUM 8.5 mg/dL (8.5-10.1); CO2 24 mmol/L (21-32); CREATININE 1.5 mg/dL (0.7-1.3); GLUCOSE,RANDOM 107 mg/dL (74-106); SGOT/AST 14 U/L (15-37); SGPT/ALT 12 U/L (12-78)
[2017-08-04] MEDS: PANTOPRAZOLE 40 MG TABLET (FP) PO SCH (09:59)
[2017-08-04] MEDS: FOLIC ACID 1 MG TABLET (FP) PO SCH (09:59)
[2017-08-04] MEDS: ENOXAPARIN NA (PORCINE) 40 MG/0.4 ML DISP.SYRIN SQ SCH (09:59)
--- NOTE | 2017-08-04 13:44 | PN ---
Teaching Attending Note Name of Resident: Adeel Frazier ATTENDING PHYSICIAN STATEMENT patient signed out AMA prior to my assessment. pt counselled by resident. scripts sent to pharmacy.
[2017-08-04 14:15] VITALS: BP 138/66; PULSE 96; TEMP 98.2
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
== END 2017-08-04 13:22 | disposition left against medical advice (07) | DRG 351 ==
LOC: JER 07:20 → JERBED 08:18 → J5S 14:01
PROVIDERS: ADMIT Hospitalist; ATTEND Internal Medicine
PROC: 0S9D3ZZ Drainage of Left Knee Joint, Percutaneous Approach (ICD-10-PCS; principal; 2017-08-01)
DX: M71.162 Other infective bursitis, left knee (principal); N17.9 Acute kidney failure, unspecified; I30.9 Acute pericarditis, unspecified; M32.9 Systemic lupus erythematosus, unspecified; J45.909 Unspecified asthma, uncomplicated; B95.61 Methicillin susceptible Staphylococcus aureus infection as the cause of diseases classified elsewhere; F17.210 Nicotine dependence, cigarettes, uncomplicated; D63.8 Anemia in other chronic diseases classified elsewhere
CPT/HCPCS: 36415; 71045-TC-FY; 80048; 80053; 82550; 84484; 85025; 85027; 85651; 86140; 87040; 87070; 87186; 87205; 93005; 93010; 93306-TC; 97116-GP; 97161-GP; 99282-25; J0131; J7030; J8610

== ENCOUNTER 2019-03-19 16:31 | Inpatient (IN) | payer OTHER ==
--- NOTE | 2019-03-19 16:43 | PDOC ---
Rapid Medical Evaluation Time Seen by Provider: 03/19/19 16:38 Medical Evaluation: Allergies Allergy/AdvReac Type Severity Reaction Status Date / Time diphenhydramine Allergy Verified 08/01/17 07:25 [From Benadryl] ibuprofen [From Motrin] Allergy Itching Verified 08/01/17 07:25 03/19/19 16:38 CC: sent by PMD for evaluation of right middle finger swelling- failed outpt therapy PE: healing puncture wound to lateral aspect of right 3rd finger over DIP. DIP TTP. Cap refill- WNL Orders: xray, labs Patient will proceed to ED for further evaluation. Discharge Disposition - Diagnosis Cellulitis - Referrals - Patient Instructions - Post Discharge Activity
[2019-03-19 17:03] VITALS: BMI 22.1
[2019-03-19 17:07] LABS: BASO % 0.8 % (0-2.0); EOS % 6.4 % (0-4.5); HEMATOCRIT 28.8 % (35.4-49); HEMOGLOBIN 9.9 GM/dL (11.7-16.9); LYMPH % 34.6 % (8-40); MCHC 34.2 g/dl (32.0-35.9); MEAN CELL VOLUME 105.3 fl (80-96); MONO % 9.4 % (3.8-10.2); NEUT % 48.8 % (42.8-82.8); PLATELET COUNT 138 K/MM3 (134-434); RBC 2.74 M/mm3 (4.00-5.60); WHITE BLOOD COUNT 2.1 K/mm3 (4.0-10.0)
[2019-03-19] MEDS ORDERED: VANCOMYCIN 1 GM in D5W (PRE-DOCKED) 1,000 MG/250 ML IVPB ONE (17:41)
[2019-03-19] MEDS ORDERED: PIPERACILLIN/TAZOB 3.375 GM 3.375 GM in DEXTROSE 5%-WATER - 50 ML IVPB SCH (17:45)
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
[2019-03-19 17:54] LABS: MACROCYTOSIS 1+; PLATELET ESTIMATE ADEQUATE
[2019-03-19 18:14] LABS: ALBUMIN 3.8 g/dl (3.4-5.0); BILIRUBIN,TOTAL 0.3 mg/dL (0.2-1); BLOOD UREA NITROGEN 29.3 mg/dL (7-18); CALCIUM 8.2 mg/dL (8.5-10.1); CREATININE 1.5 mg/dL (0.55-1.3); POTASSIUM 4.4 mmol/L (3.5-5.1); TOT PROT 7.6 g/dl (6.4-8.2)
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
[2019-03-19] MEDS ORDERED: VANCOMYCIN 1 GRAM (PRE-DOCKED) 1,000 MG/250 ML BAG IVPB ONE (18:22)
[2019-03-19] MEDS ORDERED: PIPERACILLIN/TAZOB 3.375 GM 3.375 GM/50 ML BAG IVPB ONE (18:23)
[2019-03-19] MEDS: ACETAMINOPHEN 325 MG TABLET (FP) PO PRN (22:30)
[2019-03-19] MEDS: HEPARIN NA (PORCINE) 5,000 UNITS/ML 1ML VIAL SQ SCH (22:30)
[2019-03-20] MEDS ORDERED: traMADol HCL 50 MG TABLET PO ONE (05:57)
[2019-03-20 07:35] LABS: BASO % 0.6 % (0-2.0); EOS % 7.7 % (0-4.5); HEMATOCRIT 28.3 % (35.4-49); HEMOGLOBIN 9.6 GM/dL (11.7-16.9); LYMPH % 36.1 % (8-40); MCH 35.1 pg (25.7-33.7); MEAN CELL VOLUME 103.3 fl (80-96); MEAN PLT VOLUME 9.8 fl (7.5-11.1); MONO % 8.2 % (3.8-10.2); NEUT % 47.4 % (42.8-82.8); PLATELET COUNT 128 K/MM3 (134-434); RBC 2.74 M/mm3 (4.00-5.60); RDW 13.9 % (11.9-15.9); WHITE BLOOD COUNT 2.2 K/mm3 (4.0-10.0)
[2019-03-20 08:58] LABS: ALBUMIN 3.6 g/dl (3.4-5.0); BILIRUBIN,TOTAL 0.3 mg/dL (0.2-1); BLOOD UREA NITROGEN 29.3 mg/dL (7-18); CALCIUM 8.3 mg/dL (8.5-10.1); CREATININE 1.5 mg/dL (0.55-1.3); POTASSIUM 4.2 mmol/L (3.5-5.1); TOT PROT 7.3 g/dl (6.4-8.2)
[2019-03-20] MEDS: HEPARIN NA (PORCINE) 5,000 UNITS/ML 1ML VIAL SQ SCH ×2 (09:45→21:30)
--- NOTE | 2019-03-20 11:27 | EKG ---
Test Reason : Blood Pressure : / mmHG Vent. Rate : 074 BPM Atrial Rate : 074 BPM P-R Int : 128 ms QRS Dur : 086 ms QT Int : 372 ms P-R-T Axes : 060 075 057 degrees QTc Int : 412 ms NORMAL SINUS RHYTHM NORMAL ECG WHEN COMPARED WITH ECG OF 03-AUG-2017 14:10, NONSPECIFIC T WAVE ABNORMALITY NO LONGER EVIDENT IN INFERIOR LEADS NONSPECIFIC T WAVE ABNORMALITY NO LONGER EVIDENT IN LATERAL LEADS Confirmed by Pepito Stein MD ([id number]) on 03/20/2019 11:26:18 AM Referred By: Confirmed By:Pepito Stein MD
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
[2019-03-20] MEDS ORDERED: PIPERACILLIN/TAZOBACTAM 3.375 GM VIAL IVPB ONE ×2 (12:58→17:23)
[2019-03-20] MEDS ORDERED: DEXTROSE 5%-WATER - 50 ML IVPB ONE ×2 (12:58→17:23)
[2019-03-20] MEDS: PIPERACILLIN/TAZOB 3.375 GM 3.375 GM in DEXTROSE 5%-WATER - 50 ML IVPB SCH ×2 (13:06→17:24)
[2019-03-20] MEDS: ACETAMINOPHEN 325 MG TABLET (FP) PO PRN ×2 (13:33→21:46)
--- NOTE | 2019-03-20 16:54 | PN ---
Progress Note, Physician - Current Medication List Current Medications: Active Medications Acetaminophen (Tylenol -) 650 mg PO Q6H PRN PRN Reason: FEVER Last Admin: 03/20/19 13:33 Dose: 650 mg Heparin Sodium (Porcine) (Heparin -) 5,000 unit SQ BID JOSE Last Admin: 03/20/19 09:45 Dose: Not Given Piperacillin Sod/Tazobactam (Sod 3.375 gm/ Dextrose) 50 mls @ 100 mls/hr IVPB Q8H-IV JOSE; Protocol Last Admin: 03/20/19 13:06 Dose: 100 mls/hr - Objective Vital Signs: Vital Signs Temperature 98.9 F 03/20/19 14:31 Pulse Rate 86 03/20/19 14:31 Respiratory Rate 18 03/20/19 14:31 Blood Pressure 149/69 03/20/19 14:31 O2 Sat by Pulse Oximetry (%) 100 03/20/19 09:00 Constitutional: Yes: No Distress HENT: Yes: Atraumatic Neck: Yes: Supple Cardiovascular: Yes: Regular Rate and Rhythm Respiratory: Yes: CTA Bilaterally Gastrointestinal: Yes: Normal Bowel Sounds Extremities: Yes: Other ( R third finger infection) Edema: No Peripheral Pulses WNL: Yes Neurological: Yes: Alert, Oriented Labs: CBC, BMP 03/20/19 06:35 03/20/19 06:35 Problem List - Problems (1) Cellulitis Assessment/Plan: iv abx id consult Code(s): L03.90 - CELLULITIS, UNSPECIFIED (2) Lupus (systemic lupus erythematosus) Assessment/Plan: need list of meds Code(s): M32.9 - SYSTEMIC LUPUS ERYTHEMATOSUS, UNSPECIFIED
[2019-03-20] MEDS ORDERED: traMADol HCL 50 MG TABLET PO PRN (16:55)
[2019-03-20] MEDS: ASPIRIN COATED 81 MG TABLET.EC PO SCH (17:41)
[2019-03-20] MEDS: azaTHIOprine 50 MG TABLET PO SCH (20:04)
[2019-03-20] MEDS: oxyCODONE HCL 5 MG TABLET PO PRN (21:46)
[2019-03-21] MEDS ORDERED: PIPERACILLIN/TAZOBACTAM 3.375 GM VIAL IVPB ONE ×3 (01:35→16:30)
[2019-03-21] MEDS ORDERED: DEXTROSE 5%-WATER - 50 ML IVPB ONE ×3 (01:36→16:30)
[2019-03-21] MEDS: PIPERACILLIN/TAZOB 3.375 GM 3.375 GM in DEXTROSE 5%-WATER - 50 ML IVPB SCH ×3 (01:42→17:07)
[2019-03-21] MEDS ORDERED: ONDANSETRON 4 MG/2 ML VIAL IVPUSH ONE (06:01)
[2019-03-21] MEDS: oxyCODONE HCL 5 MG TABLET PO PRN ×3 (06:08→17:06)
[2019-03-21] MEDS: ACETAMINOPHEN 325 MG TABLET (FP) PO PRN ×3 (06:11→17:05)
[2019-03-21] MEDS ORDERED: azaTHIOprine 50 MG TABLET PO SCH (10:00)
--- NOTE | 2019-03-21 10:07 | PN ---
Progress Note, Physician History of Present Illness: stable no new issues - Current Medication List Current Medications: Active Medications Acetaminophen (Tylenol -) 650 mg PO Q6H PRN PRN Reason: FEVER Last Admin: 03/20/19 13:33 Dose: 650 mg Acetaminophen (Tylenol -) 650 mg PO Q4H PRN PRN Reason: PAIN SCALE 4-10 Stop: 03/23/19 20:45 Last Admin: 03/21/19 06:11 Dose: 650 mg Aspirin (Ecotrin -) 81 mg PO DAILY [facility] Last Admin: 03/20/19 17:41 Dose: 81 mg Azathioprine (Imuran -) 150 mg PO DAILY [facility] Last Admin: 03/20/19 20:04 Dose: 150 mg Heparin Sodium (Porcine) (Heparin -) 5,000 unit SQ BID [facility] Last Admin: 03/20/19 21:30 Dose: Not Given Piperacillin Sod/Tazobactam (Sod 3.375 gm/ Dextrose) 50 mls @ 100 mls/hr IVPB Q8H-IV [facility]; Protocol Last Admin: 03/21/19 01:42 Dose: 100 mls/hr Oxycodone HCl (Roxicodone -) 10 mg PO Q4H PRN PRN Reason: PAIN SCALE 4-10 Last Admin: 03/21/19 06:08 Dose: 10 mg - Objective Vital Signs: Vital Signs Temperature 98.1 F 03/21/19 06:08 Pulse Rate 62 03/21/19 06:08 Respiratory Rate 18 03/21/19 06:08 Blood Pressure 133/82 03/21/19 06:08 O2 Sat by Pulse Oximetry (%) 100 03/20/19 21:00 Constitutional: Yes: No Distress, Calm Cardiovascular: Yes: S1, S2 Respiratory: Yes: Regular, CTA Bilaterally Gastrointestinal: Yes: Normal Bowel Sounds, Soft Musculoskeletal: Yes: WNL Extremities: Yes: Other Wound/Incision: Yes: Open to air Neurological: Yes: Alert, Oriented Psychiatric: Yes: Alert, Oriented Labs: CBC, BMP 03/20/19 06:35 03/20/19 06:35 Assessment/Plan tis patient with multiple medical problems coming to the hospital because of non healing of the ulcer of the middle finger which happened while the patient cut his finger with knife patients cx result noted i am worried for osteo consider getting mri of the hand patient growing staph awaiting other organism
[2019-03-21] MEDS: ASPIRIN COATED 81 MG TABLET.EC PO SCH (10:43)
[2019-03-21] MEDS: azaTHIOprine 50 MG TABLET PO SCH (10:59)
[2019-03-21] MEDS: HEPARIN NA (PORCINE) 5,000 UNITS/ML 1ML VIAL SQ SCH ×2 (11:00→21:52)
--- NOTE | 2019-03-21 19:23 | PN ---
Progress Note, Physician - Current Medication List Current Medications: Active Medications Acetaminophen (Tylenol -) 650 mg PO Q6H PRN PRN Reason: FEVER Last Admin: 03/21/19 17:05 Dose: 650 mg Acetaminophen (Tylenol -) 650 mg PO Q4H PRN PRN Reason: PAIN SCALE 4-10 Stop: 03/23/19 20:45 Last Admin: 03/21/19 06:11 Dose: 650 mg Aspirin (Ecotrin -) 81 mg PO DAILY [facility] Last Admin: 03/21/19 10:43 Dose: 81 mg Azathioprine (Imuran -) 150 mg PO DAILY [facility] Last Admin: 03/21/19 10:59 Dose: 150 mg Heparin Sodium (Porcine) (Heparin -) 5,000 unit SQ BID [facility] Last Admin: 03/21/19 11:00 Dose: 5,000 unit Piperacillin Sod/Tazobactam (Sod 3.375 gm/ Dextrose) 50 mls @ 100 mls/hr IVPB Q8H-IV JOSE; Protocol Last Admin: 03/21/19 17:07 Dose: 100 mls/hr Oxycodone HCl (Roxicodone -) 10 mg PO Q4H PRN PRN Reason: PAIN SCALE 4-10 Last Admin: 03/21/19 17:06 Dose: 10 mg - Objective Vital Signs: Vital Signs Temperature 98.3 F 03/21/19 13:40 Pulse Rate 71 03/21/19 13:40 Respiratory Rate 18 03/21/19 13:40 Blood Pressure 109/58 L 03/21/19 13:40 O2 Sat by Pulse Oximetry (%) 100 03/21/19 09:00 Constitutional: Yes: No Distress HENT: Yes: Atraumatic Neck: Yes: Supple Cardiovascular: Yes: Regular Rate and Rhythm Respiratory: Yes: CTA Bilaterally Gastrointestinal: Yes: Normal Bowel Sounds Extremities: Yes: Other (R third finger infection) Neurological: Yes: Alert, Oriented Labs: CBC, BMP 03/20/19 06:35 03/20/19 06:35 Problem List - Problems (1) Cellulitis Assessment/Plan: iv abx id consult Code(s): L03.90 - CELLULITIS, UNSPECIFIED (2) Lupus (systemic lupus erythematosus) Assessment/Plan: need list of meds Code(s): M32.9 - SYSTEMIC LUPUS ERYTHEMATOSUS, UNSPECIFIED
[2019-03-22] MEDS ORDERED: DEXTROSE 5%-WATER - 50 ML IVPB ONE ×3 (01:39→20:16)
[2019-03-22] MEDS ORDERED: PIPERACILLIN/TAZOBACTAM 3.375 GM VIAL IVPB ONE ×3 (01:39→20:16)
[2019-03-22] MEDS: PIPERACILLIN/TAZOB 3.375 GM 3.375 GM in DEXTROSE 5%-WATER - 50 ML IVPB SCH ×4 (01:51→20:25)
[2019-03-22] MEDS: ACETAMINOPHEN 325 MG TABLET (FP) PO PRN ×4 (01:56→23:53)
[2019-03-22] MEDS: oxyCODONE HCL 5 MG TABLET PO PRN ×4 (01:57→23:52)
[2019-03-22] MEDS: ASPIRIN COATED 81 MG TABLET.EC PO SCH (10:43)
[2019-03-22] MEDS: azaTHIOprine 50 MG TABLET PO SCH (10:44)
[2019-03-22] MEDS: HEPARIN NA (PORCINE) 5,000 UNITS/ML 1ML VIAL SQ SCH ×2 (10:45→22:35)
--- NOTE | 2019-03-22 11:28 | CONSULT ---
Consult Consult Specialty:: Plastic Surgery - Past Medical History Rheumatology: Yes: Lupus - Alcohol/Substance Use Hx Alcohol Use: No - Smoking History Smoking history: Never smoked Have you smoked in the past 12 months: Yes Aproximately how many cigarettes per day: 8 Home Medications - Allergies Allergies/Adverse Reactions: Allergies Allergy/AdvReac Type Severity Reaction Status Date / Time No Known Allergies Allergy Verified 03/19/19 18:05 - Home Medications Home Medications: Ambulatory Orders ASA - 81 mg PO DAILY 03/19/19 Azathioprine 150 mg DAILY 03/19/19 Folic Acid - 03/19/19 Physical Exam Vital Signs: Vital Signs Temperature 97.5 F L 03/22/19 06:10 Pulse Rate 70 03/22/19 06:10 Respiratory Rate 18 03/22/19 06:10 Blood Pressure 120/73 03/22/19 06:10 O2 Sat by Pulse Oximetry (%) 100 03/21/19 21:00 Labs: CBC, BMP 03/20/19 06:35 03/20/19 06:35 Assessment/Plan Patient with history of Lupus seen for an open wound Right Middle Finger over Distal Phalanx ulnar aspect. History of poking tip of finger with tip of knife a week ago- subsequently developed this open wound. Physical exam reveals a dry area about 4mm diameter that appears to have received some treatment, but unsure what that was. There is no infection or cellulitis and tendons/nerves are all intact. Tip is mildly swollen but there is no fluctuance. Assessment- Open wound after laceration of Left middle finger tip, possibly consistent with pyogenic granuloma. Plan- No emergent treatment is indicated. Should be treated as outpatient likely with debridement and wound care. Thank you.
--- NOTE | 2019-03-22 12:02 | PN ---
Progress Note, Physician History of Present Illness: stable no issues - Current Medication List Current Medications: Active Medications Acetaminophen (Tylenol -) 650 mg PO Q6H PRN PRN Reason: FEVER Last Admin: 03/21/19 17:05 Dose: 650 mg Acetaminophen (Tylenol -) 650 mg PO Q4H PRN PRN Reason: PAIN SCALE 4-10 Stop: 03/23/19 20:45 Last Admin: 03/22/19 10:42 Dose: 650 mg Aspirin (Ecotrin -) 81 mg PO DAILY [facility] Last Admin: 03/22/19 10:43 Dose: 81 mg Azathioprine (Imuran -) 150 mg PO DAILY [facility] Last Admin: 03/22/19 10:44 Dose: 150 mg Heparin Sodium (Porcine) (Heparin -) 5,000 unit SQ BID [facility] Last Admin: 03/22/19 10:45 Dose: 5,000 unit Piperacillin Sod/Tazobactam (Sod 3.375 gm/ Dextrose) 50 mls @ 100 mls/hr IVPB Q8H-IV JOSE; Protocol Last Admin: 03/22/19 10:43 Dose: 100 mls/hr Oxycodone HCl (Roxicodone -) 10 mg PO Q4H PRN PRN Reason: PAIN SCALE 4-10 Last Admin: 03/22/19 10:45 Dose: 10 mg - Objective Vital Signs: Vital Signs Temperature 97.5 F L 03/22/19 06:10 Pulse Rate 70 03/22/19 06:10 Respiratory Rate 18 03/22/19 06:10 Blood Pressure 120/73 03/22/19 06:10 O2 Sat by Pulse Oximetry (%) 100 03/21/19 21:00 Constitutional: Yes: No Distress, Calm Cardiovascular: Yes: S1, S2 Respiratory: Yes: Regular, CTA Bilaterally Gastrointestinal: Yes: Normal Bowel Sounds, Soft Musculoskeletal: Yes: WNL Extremities: Yes: Other Wound/Incision: Yes: Open to air Neurological: Yes: Alert, Oriented Psychiatric: Yes: Alert, Oriented Labs: CBC, BMP 03/20/19 06:35 03/20/19 06:35 Assessment/Plan tis patient with multiple medical problems coming to the hospital because of non healing of the ulcer of the middle finger which happened while the patient cut his finger with knife plastics note noted mri of the hand will see what mri shows depending on that final treatment rest as per the team
[2019-03-22] MEDS ORDERED: ONDANSETRON 4 MG/2 ML VIAL IVPUSH PRN (18:28)
--- NOTE | 2019-03-22 18:35 | PN ---
Progress Note, Physician - Current Medication List Current Medications: Active Medications Acetaminophen (Tylenol -) 650 mg PO Q6H PRN PRN Reason: FEVER Last Admin: 03/21/19 17:05 Dose: 650 mg Acetaminophen (Tylenol -) 650 mg PO Q4H PRN PRN Reason: PAIN SCALE 4-10 Stop: 03/23/19 20:45 Last Admin: 03/22/19 14:51 Dose: 650 mg Aspirin (Ecotrin -) 81 mg PO DAILY [facility] Last Admin: 03/22/19 10:43 Dose: 81 mg Azathioprine (Imuran -) 150 mg PO DAILY [facility] Last Admin: 03/22/19 10:44 Dose: 150 mg Heparin Sodium (Porcine) (Heparin -) 5,000 unit SQ BID [facility] Last Admin: 03/22/19 10:45 Dose: 5,000 unit Piperacillin Sod/Tazobactam (Sod 3.375 gm/ Dextrose) 50 mls @ 100 mls/hr IVPB Q8H-IV JOSE; Protocol Last Admin: 03/22/19 10:43 Dose: 100 mls/hr Ondansetron HCl (Zofran Injection) 4 mg IVPUSH Q12H PRN PRN Reason: NAUSEA AND/OR VOMITING Oxycodone HCl (Roxicodone -) 10 mg PO Q4H PRN PRN Reason: PAIN SCALE 4-10 Last Admin: 03/22/19 14:52 Dose: 10 mg - Objective Vital Signs: Vital Signs Temperature 98.9 F 03/22/19 14:53 Pulse Rate 69 03/22/19 14:53 Respiratory Rate 18 03/22/19 14:53 Blood Pressure 128/78 03/22/19 14:53 O2 Sat by Pulse Oximetry (%) 100 03/21/19 21:00 Constitutional: Yes: No Distress HENT: Yes: Atraumatic Neck: Yes: Supple Cardiovascular: Yes: Regular Rate and Rhythm Respiratory: Yes: CTA Bilaterally Gastrointestinal: Yes: Normal Bowel Sounds Labs: CBC, BMP 03/20/19 06:35 03/20/19 06:35 Problem List - Problems (1) Cellulitis Assessment/Plan: iv abx R finger ..pus needs to be taken out Code(s): L03.90 - CELLULITIS, UNSPECIFIED (2) Lupus (systemic lupus erythematosus) Assessment/Plan: need list of meds Code(s): M32.9 - SYSTEMIC LUPUS ERYTHEMATOSUS, UNSPECIFIED
[2019-03-23] MEDS ORDERED: PIPERACILLIN/TAZOBACTAM 3.375 GM VIAL IVPB ONE ×3 (03:44→16:36)
[2019-03-23] MEDS ORDERED: DEXTROSE 5%-WATER - 100 ML IVPB ONE (03:44)
[2019-03-23] MEDS: PIPERACILLIN/TAZOB 3.375 GM 3.375 GM in DEXTROSE 5%-WATER - 50 ML IVPB SCH ×3 (03:49→17:11)
[2019-03-23] MEDS: oxyCODONE HCL 5 MG TABLET PO PRN ×3 (07:10→18:20)
[2019-03-23] MEDS: ACETAMINOPHEN 325 MG TABLET (FP) PO PRN ×3 (07:11→18:21)
[2019-03-23] MEDS ORDERED: DEXTROSE 5%-WATER - 50 ML IVPB ONE ×2 (10:16→16:36)
[2019-03-23] MEDS: HEPARIN NA (PORCINE) 5,000 UNITS/ML 1ML VIAL SQ SCH ×2 (10:46→21:31)
[2019-03-23] MEDS: ASPIRIN COATED 81 MG TABLET.EC PO SCH (10:46)
[2019-03-23] MEDS: azaTHIOprine 50 MG TABLET PO SCH (10:47)
--- NOTE | 2019-03-23 12:08 | PN ---
Progress Note, Physician History of Present Illness: patient stable no new issues going for mri of the hand - Current Medication List Current Medications: Active Medications Acetaminophen (Tylenol -) 650 mg PO Q6H PRN PRN Reason: FEVER Last Admin: 03/23/19 07:11 Dose: 650 mg Acetaminophen (Tylenol -) 650 mg PO Q4H PRN PRN Reason: PAIN SCALE 4-10 Stop: 03/23/19 20:45 Last Admin: 03/22/19 23:53 Dose: 650 mg Aspirin (Ecotrin -) 81 mg PO DAILY [facility] Last Admin: 03/23/19 10:46 Dose: 81 mg Azathioprine (Imuran -) 150 mg PO DAILY [facility] Last Admin: 03/23/19 10:47 Dose: 150 mg Heparin Sodium (Porcine) (Heparin -) 5,000 unit SQ BID [facility] Last Admin: 03/23/19 10:46 Dose: 5,000 unit Piperacillin Sod/Tazobactam (Sod 3.375 gm/ Dextrose) 50 mls @ 100 mls/hr IVPB Q8H-IV JOSE; Protocol Last Admin: 03/23/19 10:47 Dose: 100 mls/hr Ondansetron HCl (Zofran Injection) 4 mg IVPUSH Q12H PRN PRN Reason: NAUSEA AND/OR VOMITING Last Admin: 03/23/19 05:46 Dose: 4 mg Oxycodone HCl (Roxicodone -) 10 mg PO Q4H PRN PRN Reason: PAIN SCALE 4-10 Last Admin: 03/23/19 07:10 Dose: 10 mg - Objective Vital Signs: Vital Signs Temperature 98.3 F 03/23/19 10:00 Pulse Rate 74 03/23/19 10:00 Respiratory Rate 20 03/23/19 10:00 Blood Pressure 139/72 03/23/19 10:00 O2 Sat by Pulse Oximetry (%) 100 03/23/19 09:00 Constitutional: Yes: No Distress, Calm Cardiovascular: Yes: S1, S2 Respiratory: Yes: Regular, CTA Bilaterally Gastrointestinal: Yes: Normal Bowel Sounds, Soft Musculoskeletal: Yes: WNL Extremities: Yes: Other Wound/Incision: Yes: Other (wound of the hand worsening) Neurological: Yes: Alert, Oriented Psychiatric: Yes: Alert, Oriented Labs: CBC, BMP 03/20/19 06:35 03/20/19 06:35 Assessment/Plan tis patient with multiple medical problems coming to the hospital because of non healing of the ulcer of the middle finger which happened while the patient cut his finger with knife will see what mri result shows if osteo will need manager intermediate treatment will need to follow with hand rest as per the team
--- NOTE | 2019-03-23 12:14 | CON.ORTH ---
Consult Reason for Consultation:: right middle finger wound/pain - Past Medical History Rheumatology: Yes: Lupus - Alcohol/Substance Use Hx Alcohol Use: No - Smoking History Smoking history: Never smoked Have you smoked in the past 12 months: Yes Aproximately how many cigarettes per day: 8 Home Medications - Allergies Allergies/Adverse Reactions: Allergies Allergy/AdvReac Type Severity Reaction Status Date / Time No Known Allergies Allergy Verified 03/19/19 18:05 - Home Medications Home Medications: Ambulatory Orders ASA - 81 mg PO DAILY 03/19/19 Azathioprine 150 mg DAILY 03/19/19 Folic Acid - 03/19/19 Physical Exam for Ortho Vital Signs: Vital Signs Temperature 98.3 F 03/23/19 10:00 Pulse Rate 74 03/23/19 10:00 Respiratory Rate 20 03/23/19 10:00 Blood Pressure 139/72 03/23/19 10:00 O2 Sat by Pulse Oximetry (%) 100 03/23/19 09:00 Labs: CBC, BMP 03/20/19 06:35 03/20/19 06:35 - Upper Extremity Hand: Yes: Right, Pain, Swelling, Tenderness, Other (right middle finger- + nonhealing ulcer, no drainage, + erythema, + ttp, nvi) Assessment/Plan 28-year-old male with history of lupus and arthritis presents the emergency room with complaints of nonhealing right third digit wound. Patient states about a month ago was stuck with a knife which was self-inflicted and area seemed to heal up but about 5 days ago became swollen, tender and hole began to open. Patient denies fever, chills but states pain with movement. Patient states went to [facility] 3 days ago and was prescribed clindamycin which she states has been taking but denies any improvement. Patient also states has not been taking his lupus medication since he failed to refill the medication. a/p right middle finger nonhealing wound/cellulitis ABX as per ID MRI pending Please re-consult Dr. Corcoran for further treatment of this patient d/w Dr. Tian
--- NOTE | 2019-03-23 17:28 | PN ---
Progress Note, Physician - Current Medication List Current Medications: Active Medications Acetaminophen (Tylenol -) 650 mg PO Q6H PRN PRN Reason: FEVER Last Admin: 03/23/19 13:10 Dose: 650 mg Acetaminophen (Tylenol -) 650 mg PO Q4H PRN PRN Reason: PAIN SCALE 4-10 Stop: 03/23/19 20:45 Last Admin: 03/22/19 23:53 Dose: 650 mg Aspirin (Ecotrin -) 81 mg PO DAILY [facility] Last Admin: 03/23/19 10:46 Dose: 81 mg Azathioprine (Imuran -) 150 mg PO DAILY [facility] Last Admin: 03/23/19 10:47 Dose: 150 mg Heparin Sodium (Porcine) (Heparin -) 5,000 unit SQ BID [facility] Last Admin: 03/23/19 10:46 Dose: 5,000 unit Piperacillin Sod/Tazobactam (Sod 3.375 gm/ Dextrose) 50 mls @ 100 mls/hr IVPB Q8H-IV [facility]; Protocol Last Admin: 03/23/19 17:11 Dose: 100 mls/hr Ondansetron HCl (Zofran Injection) 4 mg IVPUSH Q12H PRN PRN Reason: NAUSEA AND/OR VOMITING Last Admin: 03/23/19 05:46 Dose: 4 mg Oxycodone HCl (Roxicodone -) 10 mg PO Q4H PRN PRN Reason: PAIN SCALE 4-10 Last Admin: 03/23/19 13:06 Dose: 10 mg - Objective Vital Signs: Vital Signs Temperature 98 F 03/23/19 14:45 Pulse Rate 71 03/23/19 14:45 Respiratory Rate 20 03/23/19 14:45 Blood Pressure 139/78 03/23/19 14:45 O2 Sat by Pulse Oximetry (%) 100 03/23/19 09:00 Constitutional: Yes: No Distress HENT: Yes: Atraumatic Neck: Yes: Supple Cardiovascular: Yes: Regular Rate and Rhythm Respiratory: Yes: CTA Bilaterally Gastrointestinal: Yes: Normal Bowel Sounds Extremities: Yes: Other (R fourth finger cellulitis) Neurological: Yes: Alert, Oriented Labs: CBC, BMP 03/20/19 06:35 03/20/19 06:35 Problem List - Problems (1) Cellulitis Assessment/Plan: iv abx R finger ..pus needs to be taken out Code(s): L03.90 - CELLULITIS, UNSPECIFIED (2) Lupus (systemic lupus erythematosus) Code(s): M32.9 - SYSTEMIC LUPUS ERYTHEMATOSUS, UNSPECIFIED
--- NOTE | 2019-03-23 17:41 | DS ---
Physical Examination Vital Signs: Vital Signs Temperature 98 F 03/23/19 14:45 Pulse Rate 71 03/23/19 14:45 Respiratory Rate 20 03/23/19 14:45 Blood Pressure 139/78 03/23/19 14:45 O2 Sat by Pulse Oximetry (%) 100 03/23/19 09:00 Labs: CBC, BMP 03/20/19 06:35 03/20/19 06:35 Discharge Summary Problems reviewed: Yes Reason For Visit: CELLULITIS,FAILURE OF OUT PATIENT TREATMENT Current Active Problems Cellulitis (Acute) Failure of outpatient treatment (Acute) Lupus (systemic lupus erythematosus) (Acute) Thrombocytopenia (Acute) - Instructions Referrals: Aliya Turner MD [Staff Physician] - Sanchez Corcoran MD [Staff Physician] - - Home Medications Comprehensive Discharge Medication List: Ambulatory Orders ASA - 81 mg PO DAILY 03/19/19 Folic Acid - 03/19/19 Amoxicillin/Potassium Clav [Augmentin 875-125 Tablet] 1 each PO BID #20 tablet 03/23/19 Azathioprine 150 mg PO DAILY #20 tablet 03/23/19
[2019-03-24] MEDS ORDERED: DEXTROSE 5%-WATER - 50 ML IVPB ONE ×2 (01:05→08:50)
[2019-03-24] MEDS ORDERED: PIPERACILLIN/TAZOBACTAM 3.375 GM VIAL IVPB ONE ×2 (01:05→08:50)
[2019-03-24] MEDS: PIPERACILLIN/TAZOB 3.375 GM 3.375 GM in DEXTROSE 5%-WATER - 50 ML IVPB SCH ×3 (01:11→09:26)
[2019-03-24] MEDS: ACETAMINOPHEN 325 MG TABLET (FP) PO PRN ×2 (01:28→11:40)
[2019-03-24 07:42] LABS: BASO % 0.9 % (0-2.0); EOS % 6.4 % (0-4.5); HEMATOCRIT 30.8 % (35.4-49); HEMOGLOBIN 10.4 GM/dL (11.7-16.9); LYMPH % 31.7 % (8-40); MCH 34.9 pg (25.7-33.7); MCHC 33.8 g/dl (32.0-35.9); MEAN CELL VOLUME 103.4 fl (80-96); MEAN PLT VOLUME 10.2 fl (7.5-11.1); MONO % 13.2 % (3.8-10.2); NEUT % 47.8 % (42.8-82.8); PLATELET COUNT 122 K/MM3 (134-434); RBC 2.98 M/mm3 (4.00-5.60); RDW 13.2 % (11.9-15.9)
[2019-03-24 08:13] LABS: WHITE BLOOD COUNT 1.8 K/mm3 (4.0-10.0)
[2019-03-24 08:38] LABS: ALBUMIN 3.8 g/dl (3.4-5.0); BILIRUBIN,TOTAL 0.3 mg/dL (0.2-1); BLOOD UREA NITROGEN 27.2 mg/dL (7-18); CALCIUM 8.7 mg/dL (8.5-10.1); CREATININE 1.4 mg/dL (0.55-1.3); POTASSIUM 3.9 mmol/L (3.5-5.1); TOT PROT 7.9 g/dl (6.4-8.2)
[2019-03-24] MEDS: azaTHIOprine 50 MG TABLET PO SCH (09:22)
[2019-03-24] MEDS: HEPARIN NA (PORCINE) 5,000 UNITS/ML 1ML VIAL SQ SCH (09:22)
[2019-03-24] MEDS: ASPIRIN COATED 81 MG TABLET.EC PO SCH (09:22)
[2019-03-24 10:11] VITALS: BP 125/65; PULSE 87; TEMP 98.3
--- NOTE | 2019-03-24 12:24 | PN ---
Progress Note, Physician History of Present Illness: Pt states he wants to go home. Has pain in Rt 3rd digit. MRI results noted. - Current Medication List Current Medications: Active Medications Acetaminophen (Tylenol -) 650 mg PO Q6H PRN PRN Reason: FEVER Last Admin: 03/24/19 11:40 Dose: 650 mg Aspirin (Ecotrin -) 81 mg PO DAILY [facility] Last Admin: 03/24/19 09:22 Dose: 81 mg Azathioprine (Imuran -) 150 mg PO DAILY [facility] Last Admin: 03/24/19 09:22 Dose: 150 mg Heparin Sodium (Porcine) (Heparin -) 5,000 unit SQ BID [facility] Last Admin: 03/24/19 09:22 Dose: Not Given Piperacillin Sod/Tazobactam (Sod 3.375 gm/ Dextrose) 50 mls @ 100 mls/hr IVPB Q8H-IV [facility]; Protocol Last Admin: 03/24/19 09:26 Dose: Not Given Ondansetron HCl (Zofran Injection) 4 mg IVPUSH Q12H PRN PRN Reason: NAUSEA AND/OR VOMITING Last Admin: 03/23/19 05:46 Dose: 4 mg - Objective Vital Signs: Vital Signs Temperature 98.3 F 03/24/19 10:00 Pulse Rate 87 03/24/19 10:00 Respiratory Rate 18 03/24/19 10:00 Blood Pressure 125/65 03/24/19 10:00 O2 Sat by Pulse Oximetry (%) 100 03/23/19 21:00 Constitutional: Yes: No Distress Cardiovascular: Yes: Regular Rate and Rhythm Respiratory: Yes: Regular Gastrointestinal: Yes: Normal Bowel Sounds, Soft Genitourinary: Yes: WNL Wound/Incision: Yes: Other (Rt middle finger wound currently dry, tender to touch) Neurological: Yes: Alert Labs: CBC, BMP 03/24/19 07:15 03/24/19 07:15 - ....Imaging MRI: Report Reviewed Problem List - Problems (1) Cellulitis Code(s): L03.90 - CELLULITIS, UNSPECIFIED (2) Lupus (systemic lupus erythematosus) Code(s): M32.9 - SYSTEMIC LUPUS ERYTHEMATOSUS, UNSPECIFIED Assessment/Plan Infected non-healing Rt 3rd finger wound/cellulitis Lupus -- MRI without findings of abscess/OM -- may switch to Augmentin 875 mg po BID x 10 days -- follow up with hand surgeon
[2019-03-24 12:30] LABS: ANISOCYTOSIS 1+; MACROCYTOSIS 0; OVALOCYTE 1+; PLATELET ESTIMATE DECREASED; TEAR DROP CELLS 1+
--- NOTE | 2019-03-24 14:07 | DS ---
Physical Examination Vital Signs: Vital Signs Temperature 98.3 F 03/24/19 10:00 Pulse Rate 87 03/24/19 10:00 Respiratory Rate 18 03/24/19 10:00 Blood Pressure 125/65 03/24/19 10:00 O2 Sat by Pulse Oximetry (%) 100 03/23/19 21:00 Constitutional: Yes: No Distress HENT: Yes: Atraumatic Neck: Yes: Supple Cardiovascular: Yes: Regular Rate and Rhythm Respiratory: Yes: CTA Bilaterally Gastrointestinal: Yes: Normal Bowel Sounds Extremities: Yes: WNL Neurological: Yes: Alert, Oriented Labs: CBC, BMP 03/24/19 07:15 03/24/19 07:15 Discharge Summary Problems reviewed: Yes Reason For Visit: CELLULITIS,FAILURE OF OUT PATIENT TREATMENT Current Active Problems Cellulitis (Acute) Failure of outpatient treatment (Acute) Lupus (systemic lupus erythematosus) (Acute) Thrombocytopenia (Acute) - Instructions Diet, Activity, Other Instructions: see your doctor in 2-3 days come back to ER if finger gets worse see wound care clinic on tuesday motrin 400 mg 2 tabs every 6 hr as needed for pain Referrals: Aliya Turner MD [Staff Physician] - Sanchez Corcoran MD [Staff Physician] - Disposition: HOME - Home Medications Comprehensive Discharge Medication List: Ambulatory Orders ASA - 81 mg PO DAILY 03/19/19 Folic Acid - 03/19/19 Amoxicillin/Potassium Clav [Augmentin 875-125 Tablet] 1 each PO BID #20 tablet 03/23/19 Azathioprine 150 mg PO DAILY #20 tablet 03/23/19 dc home fu pmd/id 2-3 days
== END 2019-03-24 15:03 | disposition home or self-care (01) | DRG 383 ==
LOC: JER 16:31 → JERBED 17:46 → J7W 19:45
PROVIDERS: ADMIT Internal Medicine; ATTEND Internal Medicine
DX: L03.011 Cellulitis of right finger (principal); D69.6 Thrombocytopenia, unspecified; M32.9 Systemic lupus erythematosus, unspecified
CPT/HCPCS: 36415; 73140-TC-RT-FY; 73218-TC-RT; 80053; 85025; 85651; 86140; 87040; 87070; 87077; 87186; 87205; 87389; 93005; 93010; 99284-25; J1644

== ENCOUNTER 2021-01-23 08:28 | Inpatient (IN) | payer OTHER ==
[2021-01-23] MEDS ORDERED: ALBUTEROL SO4 2.5/IPRATROPIUM 0.5 INH SOL 3 ML VIAL.NEB. NEB ONE ×2 (08:34→08:38)
[2021-01-23] MEDS ORDERED: methylPREDNISolone NA SUCC 125 MG/2 ML VIAL IVPUSH ONE ×2 (08:39→11:31)
[2021-01-23] MEDS ORDERED: MAGNESIUM SULF 50% (8.12 MEQ/2 ML-1 GM VIAL) IVPB ONE (08:39)
[2021-01-23] MEDS ORDERED: morphine SULFATE 4 MG/ML VIAL ONE ×2 (08:44→15:58)
[2021-01-23] MEDS ORDERED: methylPREDNISolone NA SUCC 125 MG/2 ML VIAL ONE ×2 (08:44→11:55)
[2021-01-23] MEDS ORDERED: ACETAMINOPHEN 1000 MG/100 ML VIAL (NON FORMULARY) IVPB ONE (08:56)
[2021-01-23 09:13] LABS: BASO % 0.4 % (0-2.0); EOS % 1.3 % (0-4.5); HEMATOCRIT 22.7 % (35.4-49); HEMOGLOBIN 7.5 GM/dL (11.7-16.9); LYMPH % 8.3 % (8-40); MCHC 33.2 g/dl (32.0-35.9); MEAN CELL VOLUME 99.3 fl (80-96); MEAN PLT VOLUME 9.8 fl (7.5-11.1); MONO % 2.3 % (3.8-10.2); NEUT % 87.7 % (42.8-82.8); PLATELET COUNT 275 10^3/uL (134-434); RBC 2.28 M/mm3 (4.00-5.60); RDW 16.1 % (11.9-15.9); WHITE BLOOD COUNT 10.9 K/mm3 (4.0-10.0)
[2021-01-23 09:19] VITALS: BMI 21.7
[2021-01-23] MEDS ORDERED: AZITHROMYCIN IVPB 500 MG in DEXTROSE 5%-WATER - 250 ML IVPB ONE (09:31)
[2021-01-23] MEDS ORDERED: CEFTRIAXONE 1 GM in DEXTROSE 5%-WATER - 100 ML IVPB ONE (09:31)
[2021-01-23 09:32] LABS: CALCIUM 7.7 mg/dL (8.5-10.1)
[2021-01-23 09:33] LABS: BLOOD UREA NITROGEN 69.4 mg/dL (7-18)
[2021-01-23 09:36] LABS: CREATININE 4.1 mg/dL (0.55-1.3)
[2021-01-23 09:37] LABS: BILIRUBIN,TOTAL 0.4 mg/dL (0.2-1)
[2021-01-23 09:38] LABS: TOT PROT 5.1 g/dl (6.4-8.2)
[2021-01-23] MEDS ORDERED: MAGNESIUM SULFATE IN WATER 2 GM/50 ML IVPB IVPB ONE (09:47)
[2021-01-23] MEDS ORDERED: ACETAMINOPHEN INJECTION 100 ML IVPB ONE ×2 (09:47→15:58)
[2021-01-23] MEDS ORDERED: AZITHROMYCIN IVPB 500 MG/250 ML BAG IVPB ONE (09:47)
[2021-01-23 10:20] LABS: N-TERMINAL BNP 50726.4 pg/ml (5-125)
[2021-01-23 10:40] LABS: INR 1.17 (0.83-1.09); PROTHROMBIN TIME (PATIENT) 14.3 SEC (9.7-13.0)
[2021-01-23 10:42] LABS: ACTIVATED PTT 50.5 SECONDS (25.2-36.5)
[2021-01-23] MEDS ORDERED: morphine CARPU-JECT 4 MG/1 ML DISP.SYRIN IVPUSH ONE (11:00)
[2021-01-23 11:01] LABS: CHLORIDE 113 mmol/L (98-107); SODIUM 144 mmol/L (136-145)
[2021-01-23 11:02] LABS: CALCIUM 7.6 mg/dL (8.5-10.1)
[2021-01-23 11:03] LABS: ANION GAP 10 MMOL/L (8-16); BLOOD UREA NITROGEN 69.3 mg/dL (7-18); CO2 21 mmol/L (21-32); GLUCOSE,RANDOM 107 mg/dL (74-106)
[2021-01-23] MEDS ORDERED: NITROGLYCERIN 50 MG/10 ML VIAL IVPB ONE (11:07)
[2021-01-23] MEDS ORDERED: NITROGLYCERIN 25MG/D5W 250ML 25 MG/250 ML ML IVPB ONE (11:10)
[2021-01-23] MEDS ORDERED: NITROGLYCERIN 50MG/D5W 250ML 50 MG/250 ML ML IVPB SCH (11:45)
[2021-01-23] MEDS ORDERED: CEFTRIAXONE 1 GM/50 ML BAG ONE (11:51)
[2021-01-23 12:45] LABS: ARTERIAL BLD GAS O2 SATURATION 91.5 % (95-98); ARTERIAL BLOOD GAS BASE EXCESS -8.4 mmol/L (-2-2); ARTERIAL BLOOD GAS PO2 65.5 mmHg (80-100); ARTERIAL BLOOD GAS pH 7.317 (7.350-7.450)
[2021-01-23 12:46] LABS: ALLENS TEST POSITIVE
[2021-01-23] MEDS ORDERED: RAPID SEQUENCE INTUBATION KIT NR ONE (15:59)
[2021-01-23] MEDS ORDERED: PROPOFOL 1,000,000 MCG/100 ML VIAL ONE ×2 (16:47→18:06)
[2021-01-23] MEDS: PROPOFOL 1,000,000 MCG/100 ML VIAL IVPB SCH (18:23)
[2021-01-23] MEDS ORDERED: MIDAZOLAM HCL 2 MG/2 ML SINGLE DOSE VIAL IVPUSH ONE ×2 (18:29→22:48)
[2021-01-23] MEDS ORDERED: LABETALOL HCL INJECTION 1,000 MG in DEXTROSE 5%-WATER - 800 ML IV SCH (18:30)
[2021-01-23] MEDS ORDERED: DEXMEDETOMIDINE IN 0.9 % NACL 400 MCG/100 ML VIAL IVPB SCH (18:45)
[2021-01-23 19:44] LABS: HIV INTERPRETATION NEGATIVE (NEGATIVE)
[2021-01-23 20:43] LABS: EPI CELLS >36 /uL (0-25.1); HYALINE CASTS 12 /uL (0-3.1); URINE APPEARANCE CLEAR; URINE BACTERIA 22 /uL (0-1359); URINE BILIRUBIN NEGATIVE (NEGATIVE); URINE COLOR YELLOW; URINE GLUCOSE (UA) TRACE (NEGATIVE); URINE KETONE NEGATIVE (NEGATIVE); URINE LEUK ESTERASE NEGATIVE (NEGATIVE); URINE NITRITE NEGATIVE (NEGATIVE); URINE PROTEIN 4+ (NEGATIVE); URINE UROBILINOGEN 0.2 mg/dL (0.2-1.0); URINE WBC 54 /uL (0-25.8)
[2021-01-23 21:12] LABS: MCHC 33.7 g/dl (32.0-35.9); MEAN PLT VOLUME 9.5 fl (7.5-11.1); PLATELET COUNT 173 10^3/uL (134-434); RBC 2.04 M/mm3 (4.00-5.60); RDW 15.8 % (11.9-15.9); WHITE BLOOD COUNT 7.5 K/mm3 (4.0-10.0)
[2021-01-23 21:17] LABS: HEMOGLOBIN 6.7 GM/dL (11.7-16.9)
[2021-01-23] MEDS: MUPIROCIN 2% TOPICAL OINTMENT FOR DECOLONIZATION NS SCH (21:33)
[2021-01-23 21:52] LABS: LDH 303 U/L (87-246)
[2021-01-23] MEDS ORDERED: CHLORHEXIDINE GLUCONATE 4% CLEANSER FOR DECOLONIZATION TP SCH (22:00)
[2021-01-23 22:45] LABS: ERYTHROCYTE SEDIMENTATION RATE 121 mm/hr (0-10)
[2021-01-23 23:06] LABS: URINE RBC 70 /uL (0-23.9)
[2021-01-24] MEDS: MIDAZOLAM HCL 2 MG/2 ML SINGLE DOSE VIAL IVPUSH PRN ×3 (03:42→08:39)
[2021-01-24] MEDS: PROPOFOL 1,000,000 MCG/100 ML VIAL IVPB SCH ×3 (03:43→20:37)
[2021-01-24] MEDS ORDERED: ATOVAQUONE 750 MG/5 ML (UNIT-DOSE PACKAGING) NGT SCH (08:00)
[2021-01-24 08:04] LABS: BASO % 0.1 % (0-2.0); HEMOGLOBIN 10.3 GM/dL (11.7-16.9); LYMPH % 9.3 % (8-40); MCH 33.1 pg (25.7-33.7); MCHC 34.5 g/dl (32.0-35.9); MEAN PLT VOLUME 10.1 fl (7.5-11.1); MONO % 3.2 % (3.8-10.2); NEUT % 87.4 % (42.8-82.8); PLATELET COUNT 217 10^3/uL (134-434); RBC 3.13 M/mm3 (4.00-5.60); WHITE BLOOD COUNT 6.9 K/mm3 (4.0-10.0)
[2021-01-24 08:23] LABS: CHLORIDE 110 mmol/L (98-107); SODIUM 141 mmol/L (136-145)
[2021-01-24 08:26] LABS: BLOOD UREA NITROGEN 79.7 mg/dL (7-18); CALCIUM 7.4 mg/dL (8.5-10.1); CO2 21 mmol/L (21-32); GLUCOSE,RANDOM 90 mg/dL (74-106)
[2021-01-24 08:27] LABS: ALBUMIN 1.9 g/dl (3.4-5.0); MAGNESIUM 2.8 mg/dL (1.8-2.4)
[2021-01-24 08:29] LABS: CREATININE 4.8 mg/dL (0.55-1.3); LDH 815 U/L (87-246); SGOT/AST 882 U/L (15-37); SGPT/ALT 716 U/L (13-61)
[2021-01-24 08:30] LABS: BILIRUBIN,TOTAL 0.4 mg/dL (0.2-1); TOT PROT 4.8 g/dl (6.4-8.2)
[2021-01-24 08:31] LABS: ALK PHOS 56 U/L (45-117)
[2021-01-24] MEDS ORDERED: PT OWN MED DRAWER 7, Y5N ONE (09:24)
[2021-01-24] MEDS ORDERED: DEXTROSE 5%-WATER 100 ML IVPB ONE (09:24)
[2021-01-24 09:29] LABS: ANION GAP 10 MMOL/L (8-16); PHOSPHOROUS 8.9 mg/dL (2.5-4.9)
[2021-01-24] MEDS: MUPIROCIN 2% TOPICAL OINTMENT FOR DECOLONIZATION NS SCH (09:35)
[2021-01-24] MEDS ORDERED: INSULIN REGULAR HUMAN 100 UNITS/ML *VIAL IVPUSH ONE ×2 (09:47→18:54)
[2021-01-24] MEDS ORDERED: SODIUM BICARBONATE 8.4% 50 MEQ/50 ML DISP.SYRIN IVPUSH ONE ×3 (09:48→19:09)
[2021-01-24] MEDS ORDERED: DEXTROSE 50%-WATER - 25 GM/50 ML VIAL IVPUSH ONE ×2 (09:48→18:55)
[2021-01-24] MEDS ORDERED: CEFTRIAXONE 1 GM in DEXTROSE 5%-WATER - 50 ML IVPB SCH (10:00)
[2021-01-24] MEDS ORDERED: CEFTRIAXONE 2 GM in DEXTROSE 5%-WATER 2 GM/100 ML BAG IVPB SCH (10:00)
[2021-01-24] MEDS ORDERED: azaTHIOprine 50 MG TABLET GT SCH (10:00)
[2021-01-24] MEDS ORDERED: AZITHROMYCIN IVPB 500 MG/250 ML BAG IVPB SCH (10:00)
[2021-01-24] MEDS ORDERED: AZITHROMYCIN IVPB 250 MG in DEXTROSE 5%-WATER - 250 ML IVPB SCH (10:00)
[2021-01-24] MEDS ORDERED: azaTHIOprine 50 MG TABLET PO SCH (10:00)
[2021-01-24] MEDS ORDERED: SODIUM ZIRCONIUM CYCLOSILICATE (LOKELMA) 5 GM PACKET PO SCH (10:00)
[2021-01-24] MEDS ORDERED: DEXTROSE 50%-WATER 25 GM/50 ML DISP.SYRIN ONE ×2 (10:17→19:07)
[2021-01-24] MEDS ORDERED: FENTANYL NS IVPB 500 MCG/100 ML BAG IVPB SCH (10:30)
[2021-01-24] MEDS ORDERED: MIDAZOLAM 100 MG in SODIUM CHLORIDE 100 ML IVPB SCH (10:30)
[2021-01-24] MEDS ORDERED: LABETALOL HCL 5 MG/1 ML (100MG/20 ML VIAL) IVPUSH PRN (10:34)
[2021-01-24] MEDS ORDERED: MIDAZOLAM IN 0.9 % SOD.CHLORID 1 MG/1 ML PLAST..BAG ONE (11:12)
[2021-01-24] MEDS ORDERED: FUROSEMIDE 100 MG/10 ML INJECTABLE VIAL IVPB ONE (13:00)
[2021-01-24 13:10] LABS: INR 1.21 (0.83-1.09); PROTHROMBIN TIME (PATIENT) 14.6 SEC (9.7-13.0)
[2021-01-24 13:13] LABS: ACTIVATED PTT 32.9 SECONDS (25.2-36.5)
[2021-01-24] MEDS ORDERED: ALBUTEROL SO4 2.5/IPRATROPIUM 0.5 INH SOL 3 ML VIAL.NEB. NEB PRN (15:45)
[2021-01-24 17:54] LABS: CHLORIDE 110 mmol/L (98-107); SODIUM 140 mmol/L (136-145)
[2021-01-24 17:57] LABS: ALBUMIN 1.5 g/dl (3.4-5.0); BLOOD UREA NITROGEN 94.1 mg/dL (7-18); CO2 19 mmol/L (21-32); GLUCOSE,RANDOM 121 mg/dL (74-106)
[2021-01-24 18:00] LABS: CREATININE 5.4 mg/dL (0.55-1.3)
[2021-01-24 18:01] LABS: BILIRUBIN,TOTAL 0.9 mg/dL (0.2-1)
[2021-01-24 18:03] LABS: ALK PHOS 48 U/L (45-117)
[2021-01-24 18:51] LABS: ANION GAP 11 MMOL/L (8-16); SGOT/AST 1219 U/L (15-37); SGPT/ALT 1118 U/L (13-61)
[2021-01-24] MEDS ORDERED: CALCIUM GLUCONATE 10% - 1,000 MG/10 ML VIAL IVPUSH ONE (18:53)
[2021-01-24 18:56] LABS: ALLENS TEST POSITIVE; ARTERIAL BLD GAS O2 SATURATION 96.2 % (95-98); ARTERIAL BLOOD GAS BASE EXCESS -8.6 mmol/L (-2-2); ARTERIAL BLOOD GAS PO2 90.2 mmHg (80-100)
[2021-01-24 18:57] LABS: VENT RATE 18
[2021-01-24 21:10] LABS: BLOOD UREA NITROGEN 100.9 mg/dL (7-18)
[2021-01-24 21:13] LABS: CREATININE 5.5 mg/dL (0.55-1.3)
[2021-01-25 00:35] VITALS: BP 107/70; PULSE 81; TEMP 97.9
[2021-01-26 12:07] LABS: ANTIGLOMERULAR BASEMENT MEN.AB 2 units (0-20)
[2021-01-27 10:09] LABS: VON WILLEBRAND ANTIGEN 271 % (50-200)
== END 2021-01-24 23:30 | disposition short-term general hospital (02) | DRG 133 ==
LOC: JER 08:28 → JERBED 08:33 → JICU 17:58
PROVIDERS: ADMIT Internal Medicine Pulmonary Disease; ATTEND Internal Medicine Pulmonary Disease
PROC: 5A1945Z Respiratory Ventilation, 24-96 Consecutive Hours (ICD-10-PCS; principal; 2021-01-23)
PROC: 0BH17EZ Insertion of Endotracheal Airway into Trachea, Via Natural or Artificial Opening (ICD-10-PCS; 2021-01-23)
PROC: 30233N1 Transfusion of Nonautologous Red Blood Cells into Peripheral Vein, Percutaneous Approach (ICD-10-PCS; 2021-01-23)
DX: J96.01 Acute respiratory failure with hypoxia (principal); I13.2 Hypertensive heart and chronic kidney disease with heart failure and with stage 5 chronic kidney disease, or end stage renal disease; J18.9 Pneumonia, unspecified organism; J81.1 Chronic pulmonary edema; N17.9 Acute kidney failure, unspecified; N18.6 End stage renal disease; I24.8 Other forms of acute ischemic heart disease; M32.9 Systemic lupus erythematosus, unspecified; R04.2 Hemoptysis; D64.9 Anemia, unspecified; D72.829 Elevated white blood cell count, unspecified; I16.1 Hypertensive emergency; I50.9 Heart failure, unspecified; J45.909 Unspecified asthma, uncomplicated; R04.89 Hemorrhage from other sites in respiratory passages; R31.9 Hematuria, unspecified; R80.9 Proteinuria, unspecified; R94.5 Abnormal results of liver function studies; Z99.2 Dependence on renal dialysis; E87.5 Hyperkalemia
CPT/HCPCS: 36415; 36430; 36600; 70450-TC; 71045-TC-FY; 71250-TC; 76775-TC; 80048; 80053; 81003; 82308; 82550; 82553; 82570; 82803; 83516; 83520; 83605; 83615; 83735; 83880; 84100; 84155; 84156; 84165; 84443; 84484; 85025; 85027; 85246; 85247; 85384; 85610; 85651; 85730; 86038; 86140; 86160; 86162; 86225; 86256; 86431; 86480; 86606; 86705; 86706; 86707; 86708; 86803; 86850; 86870; 86880; 86900; 86901; 86902; 86922; 87040; 87086; 87305; 87340; 87350; 87389; 87449; 87517; 87804; 87899; 93005; 93010; 93970-TC; 94002; 99285-25; C9803; J0131; P9058; U0003; U0005

== ENCOUNTER 2024-12-11 17:53 | Emergency (ER) | payer OTHER ==
[2024-12-11 18:00] VITALS: BP 124/74; PULSE 78; RESP 20; TEMP 98; BMI 20.2
[2024-12-11] MEDS ORDERED: ACETAMINOPHEN 325 MG TABLET (FP) ONE (18:49)
[2024-12-11] MEDS: ACETAMINOPHEN 325 MG TABLET (FP) PO ONE (18:54)
[2024-12-11 19:19] LABS: ABSOLUTE IMMATURE GRANULOCYTES 0.04 x10^3/uL (0.0-0.031); BASOPHILS # 0.04 x10^3/uL (0.01-0.08); EOSINOPHIL % 1.0 % (0.8-7.0); EOSINOPHILS # 0.08 x10^3/uL (0.04-0.54); MCHC 31.3 g/dl (32.3-36.5); MEAN CELL VOLUME 111.3 fl (79.0-92.2); MEAN PLT VOLUME 10.5 fl (9.4-12.4); MONOCYTE # 0.35 x10^3/uL (0.30-0.82); MONOCYTE % 4.2 % (5.3-12.2); RDW 15.3 % (12.0-15.6)
[2024-12-11 19:57] LABS: CO2 28 mmol/L (21-32); GLUCOSE,RANDOM 101 mg/dL (74-106)
[2024-12-11 20:00] LABS: CREATININE 5.7 mg/dL (0.55-1.3); SGOT/AST 53 U/L (15-37); SGPT/ALT 27 U/L (13-61)
[2024-12-11 20:02] LABS: TOT PROT 8.2 g/dl (6.4-8.2)
[2024-12-11 20:03] LABS: ALK PHOS 79 U/L (45-117)
[2024-12-12 13:10] LABS: HIV INTERPRETATION NEGATIVE (NEGATIVE)
[2024-12-12 13:16] LABS: HCV DIAGNOSTIC IN-HOUSE W/RFLX NON-REACTIVE (NONREACTIVE)
== END 2024-12-11 22:24 | disposition left against medical advice (07) ==
LOC: JER 17:53
DX: R42 Dizziness and giddiness (principal); R51.9 Headache, unspecified; R11.0 Nausea
CPT/HCPCS: 36415; 70450-TC; 71045-TC-FY; 80053; 82962; 83735; 84100; 84484; 85025; 86803; 87389; 87637-QW; 93005; 93010; 99285-25